=== PATIENT | male | born 1945 | race Caucasian/White ===

== ENCOUNTER → 2017-11-11 | Outpatient (CLI) | payer MEDICARE, BC ==
[2017-11-11 14:53] LABS: Blood Urea Nitrogen 20 mg/dL (9-20)
--- NOTE | 2017-11-11 15:32 | CT ---
EXAMINATION TYPE: CT chest w con DATE OF EXAM: 11/11/2017 COMPARISON: NONE HISTORY: Patient complains of episodes of difficulty breathing and asthma. CT DLP: 714 mGycm Automated exposure control for dose reduction was used. CONTRAST: CT scan of the chest is performed with IV Contrast, patient injected with 100 mL of Omnipaque 300. FINDINGS: LUNGS: There is a mild atelectasis right middle lobe medial segment. The remainder of the lungs are w ell aerated. Mild compressive atelectasis right lung base. No evidence for focal consolidation or mas s. No evidence for nodule. There is no pleural effusion or pneumothorax seen. The tracheobronchial t ree is patent. MEDIASTINUM: There are no greater than 1 cm hilar or mediastinal lymph nodes. No pericardial effusi on is seen. Thoracic aorta is of normal caliber. The heart is not enlarged. UPPER ABDOMEN: Noncalcified cholelithiasis. OTHER: No additional significant abnormality is seen. IMPRESSION: 1. Mild right middle lobe atelectasis and dependent atelectasis as discussed. No evidence for infiltr ate or mass at this time. 2. Cholelithiasis.
== END | disposition home or self-care (01) ==
LOC: RADCTMAIN 14:01
PROVIDERS: ATTEND Internal Medicine Critical Care Medicine
DX: J98.11 Atelectasis (principal)
CPT/HCPCS: 82565; 84520; 71260; 36415; Q9967

== ENCOUNTER 2019-10-22 10:31 | Day surgery (SDC) | payer MEDICARE, BC ==
[2019-10-21 11:28] VITALS: BMI 34.0
[~2019-10-22 10:31] MED LIST: ALBUTEROL NEB (CONC) 2.5 MG/0.5 ML INHALATION ONE; ATROPINE SULFATE 0.4 MG/ML 1 ML VIAL IM ONE; LACTATED RINGERS 1,000 ML IV SCH; LIDOCAINE 1% 20 ML VIAL (10MG/ML) FOR IV START INTRADERMA PRN; LIDOCAINE 2% (PF) 20 MG/ML 5 ML VIAL INHALATION ONE; LIDOCAINE VISCOUS 300 MG/15 ML CUP MUCOUS MEM ONE; SODIUM CHLORIDE 0.9% 1,000 ML IV SCH
[2019-10-22 11:33] VITALS: TEMP 97.8
[2019-10-22] MEDS ORDERED: PROPOFOL 10 MG/ML 20 ML VIAL IV ONE (11:36)
[2019-10-22] MEDS ORDERED: LIDOCAINE 1% INJ 10MG/ML (20 ML MDV) ONE (11:36)
[2019-10-22] MEDS ORDERED: LIDOCAINE 2% INJ 20 MG/ML INTRATRACH ONE (11:50)
[2019-10-22 11:58] VITALS: RESP 16
[2019-10-22 12:06] VITALS: BP 116/76; PULSE 98
--- NOTE | 2019-10-22 12:07 | PCN ---
PROCEDURE NOTE PROCEDURE: Bronchoscopy, airway examination, therapeutic lavage, BAL right middle lobe. PREOPERATIVE DIAGNOSIS: Severe asthma. POSTOPERATIVE DIAGNOSIS: Severe asthma. CALL CENTER AGENT: Dr. Palencia. There was informed consent and universal timeout. The patient's procedure took place in room 1, [facility], [employer]CH[employer]ICIAN provided the general anesthesia. After the patient was adequately sedated and being fully monitored, the bronchoscope was inserted through the right nostril. It passed through the right nasopharynx into the oropharynx. The hypopharynx was evaluated. The anterior commissure, true cords, false cords, arytenoids, piriform sinuses right and left, vallecula, and epiglottis, all appeared normal. The glottic opening was topicalized. The bronchoscope was pushed through the glottic opening into the trachea. The trachea appeared relatively normal, although there were thick purulent secretions noted throughout the trachea. They were suctioned. The tracheal mindy was sharp. The right and left mainstem were topicalized. The right upper lobe and its 3 segments, right middle lobe and its 2 segments, right lower lobe and its 5 segments, the left upper lobe proper and its 2 segments, the lingula and its 2 segments and the left lower lobe and its 4 segments, all had similar findings of diffuse airway erythema, hyperemia and mucosal friability. The blood vessels were engorged. There were thick secretions noted throughout. They were suctioned with some difficulty. Saline was used to aid in the cleansing of the airways. After the airways were cleansed, the bronchoscope was wedged into the right middle lobe. The BAL took place. Roughly 30 mL of fluid was removed. It will be sent to the laboratory for analysis. The patient tolerated the procedure well. There was no dominant mass or tumor. There was no bleeding. The bronchoscope was withdrawn. The patient will be recovered. The patient tolerated the procedure very well. MMODL / IJN: [id number] /
[2019-10-22 16:19] LABS: Appearance,BF Hazy; Nucleated Cells, Body Fluid 100 /uL; RBC, Body Fluid 3490 /uL
[2019-10-22 16:20] LABS: Mononuclear WBC,Body Fluid 29 %; Polynuclear WBC,Body Fluid 71 %; Total Cells Counted,Body Fluid 100
== END 2019-10-22 12:20 | disposition home or self-care (01) ==
LOC: ORWHC2ENDO 10:31
PROVIDERS: ATTEND Internal Medicine Critical Care Medicine
DX: J45.909 Unspecified asthma, uncomplicated (principal); I10 Essential (primary) hypertension; E78.00 Pure hypercholesterolemia, unspecified; E78.5 Hyperlipidemia, unspecified; E07.9 Disorder of thyroid, unspecified; Z90.89 Acquired absence of other organs; Z90.49 Acquired absence of other specified parts of digestive tract; Z79.890 Hormone replacement therapy; Z79.82 Long term (current) use of aspirin; Z79.51 Long term (current) use of inhaled steroids; Z79.899 Other long term (current) drug therapy; Z88.8 Allergy status to other drugs, medicaments and biological substances; Z91.09 Other allergy status, other than to drugs and biological substances; Z87.891 Personal history of nicotine dependence; Z80.7 Family history of other malignant neoplasms of lymphoid, hematopoietic and related tissues
CPT/HCPCS: 94640; 87798 ×3; 87496; 87498; 87529; 88108; 88305; 89050; 87252; 87502; 87634; 87070; 87205; 87116; 87102; 87206; 31624; J2001 ×3; J0461; J2704

== ENCOUNTER 2020-11-09 18:13 | Inpatient (IN) | payer MEDICARE, BC ==
[2020-11-09] MEDS ORDERED: SODIUM CHLORIDE 0.9% 1,000 ML IV STA (18:49)
[2020-11-09] MEDS ORDERED: methylPREDNISolone SOD SUCCI 125 MG/2 ML VIAL IV STA (18:51)
[2020-11-09] MEDS ORDERED: ALBUTEROL NEBULIZED 2.5 MG/3 ML INHALATION STA (18:52)
--- NOTE | 2020-11-09 18:59 | ED ---
SOB HPI - General Chief Complaint: Shortness of Breath Stated Complaint: Sent by [employer] - Pneumonia Time Seen by Provider: 11/09/20 18:20 Source: patient, RN notes reviewed Mode of arrival: ambulatory Limitations: no limitations - History of Present Illness Initial Comments: Is a 75-year-old male with a known history of also history of bronchoscopy who states she's had progressively worsening shortness of breath for the past 4-5 days she had a cough with yellow phlegm states she's had low-grade fever up until today he states his fevers of 100.5. No chest pain he has exertional dyspnea. He states that he is able coughing somewhat he feels better. He was seen at [facility] today and diagnosed with bilateral pneumonia. He did have a Covid 19 test that was negative. MD Complaint: shortness of breath, cough - Related Data Home Medications Medication Instructions Recorded Confirmed Atorvastatin [Lipitor] 20 mg PO HS 10/21/19 11/09/20 Levothyroxine Sodium [Synthroid] 50 mcg PO DAILY 10/21/19 11/09/20 Losartan Potassium 100 mg PO HS 10/21/19 11/09/20 Montelukast [Singulair] 10 mg PO HS 10/21/19 11/09/20 Fluticasone/Salmeterol [Advair Hfa 2 puff INHALATION RT-BID 11/09/20 11/09/20 230-21 Mcg Inhaler] Loratadine 10 mg PO DAILY 11/09/20 11/09/20 Allergies Allergy/AdvReac Type Severity Reaction Status Date / Time ipratropium Allergy Unknown Verified 11/09/20 21:09 Review of Systems ROS Statement: Those systems with pertinent positive or pertinent negative responses have been documented in the HPI. ROS Other: All systems not noted in ROS Statement are negative. Past Medical History Past Medical History: Asthma, Hyperlipidemia, Hypertension, Thyroid Disorder History of Any Multi-Drug Resistant Organisms: None Reported Past Surgical History: Appendectomy, Back Surgery Past Anesthesia/Blood Transfusion Reactions: No Reported Reaction Past Psychological History: No Psychological Hx Reported Smoking Status: Never smoker Past Alcohol Use History: Daily Past Drug Use History: None Reported General Exam - General Exam Comments Initial Comments: This is a well-developed well-nourished awake alert oriented 3 male Limitations: no limitations General appearance: alert, anxious Head exam: Present: atraumatic, normocephalic, normal inspection Eye exam: Present: normal appearance, PERRL, EOMI. Absent: scleral icterus, conjunctival injection, periorbital swelling ENT exam: Present: normal exam, mucous membranes moist Neck exam: Present: normal inspection. Absent: tenderness, meningismus, lymphadenopathy Respiratory exam: Present: wheezes, rhonchi (Bibasilar), decreased breath sounds. Absent: respiratory distress, rales, stridor Cardiovascular Exam: Present: regular rate, normal rhythm, normal heart sounds. Absent: systolic murmur, diastolic murmur, rubs, gallop, clicks GI/Abdominal exam: Present: soft, normal bowel sounds. Absent: distended, tenderness, guarding, rebound, rigid Extremities exam: Present: normal inspection, full ROM, normal capillary refill. Absent: tenderness, pedal edema, joint swelling, calf tenderness Back exam: Present: normal inspection Neurological exam: Present: alert, oriented X3, CN II-XII intact Psychiatric exam: Present: normal affect, normal mood Skin exam: Present: warm, dry, intact, normal color. Absent: rash Course Vital Signs 11/09/20 11/09/20 11/09/20 18:17 18:36 19:26 Temperature 98.8 F Pulse Rate 98 98 100 Respiratory 22 20 Rate Blood Pressure 145/82 O2 Sat by Pulse 92 L 91 L Oximetry 11/09/20 11/09/20 19:38 20:50 Temperature Pulse Rate 100 88 Respiratory 17 Rate Blood Pressure 146/89 O2 Sat by Pulse 93 L Oximetry - Reevaluation(s) Reevaluation #1: 11/09/20 19:00 Report faxed from [facility] shows evidence of bilateral pneumonia: Covid 19 est negative Medical Decision Making - Lab Data Result diagrams: 11/09/20 18:53 11/09/20 18:53 Lab Results 11/09/20 11/09/20 11/09/20 Range/Units 18:53 18:53 18:53 WBC 13.2 H (3.8-10.6) k/uL RBC 4.03 L (4.30-5.90) m/uL Hgb 12.5 L (13.0-17.5) gm/dL Hct 36.1 L (39.0-53.0) % MCV 89.6 (80.0-100.0) fL MCH 31.0 (25.0-35.0) pg MCHC 34.6 (31.0-37.0) g/dL RDW 14.1 (11.5-15.5) % Plt Count 278 (150-450) k/uL MPV 7.3 Neutrophils % 79 % Lymphocytes % 13 % Monocytes % 5 % Eosinophils % 1 % Basophils % 0 % Neutrophils # 10.4 H (1.3-7.7) k/uL Lymphocytes # 1.7 (1.0-4.8) k/uL Monocytes # 0.7 (0-1.0) k/uL Eosinophils # 0.2 (0-0.7) k/uL Basophils # 0.0 (0-0.2) k/uL PT 10.6 (9.0-12.0) sec INR 1.0 (<1.2) APTT 22.4 (22.0-30.0) sec Sodium 141 (137-145) mmol/L Potassium 4.2 (3.5-5.1) mmol/L Chloride 104 (98-107) mmol/L Carbon Dioxide 25 (22-30) mmol/L Anion Gap 12 mmol/L BUN 21 H (9-20) mg/dL Creatinine 0.92 (0.66-1.25) mg/dL Est GFR (CKD-EPI)AfAm >90 (>60 ml/min/1.73 sqM) Est GFR (CKD-EPI)NonAf 80 (>60 ml/min/1.73 sqM) Glucose 105 H (74-99) mg/dL Plasma Lactic Acid Nawaf (0.7-2.0) mmol/L Calcium 9.7 (8.4-10.2) mg/dL Magnesium 2.0 (1.6-2.3) mg/dL Total Bilirubin 0.7 (0.2-1.3) mg/dL AST 30 (17-59) U/L ALT 25 (4-49) U/L Alkaline Phosphatase 138 H (38-126) U/L Creatine Kinase 63 (55-170) U/L Troponin I (0.000-0.034) ng/mL NT-Pro-B Natriuret Pep pg/mL Total Protein 7.3 (6.3-8.2) g/dL Albumin 4.0 (3.5-5.0) g/dL 11/09/20 11/09/20 11/09/20 Range/Units 18:53 18:53 18:53 WBC (3.8-10.6) k/uL RBC (4.30-5.90) m/uL Hgb (13.0-17.5) gm/dL Hct (39.0-53.0) % MCV (80.0-100.0) fL MCH (25.0-35.0) pg MCHC (31.0-37.0) g/dL RDW (11.5-15.5) % Plt Count (150-450) k/uL MPV Neutrophils % % Lymphocytes % % Monocytes % % Eosinophils % % Basophils % % Neutrophils # (1.3-7.7) k/uL Lymphocytes # (1.0-4.8) k/uL Monocytes # (0-1.0) k/uL Eosinophils # (0-0.7) k/uL Basophils # (0-0.2) k/uL PT (9.0-12.0) sec INR (<1.2) APTT (22.0-30.0) sec Sodium (137-145) mmol/L Potassium (3.5-5.1) mmol/L Chloride (98-107) mmol/L Carbon Dioxide (22-30) mmol/L Anion Gap mmol/L BUN (9-20) mg/dL Creatinine (0.66-1.25) mg/dL Est GFR (CKD-EPI)AfAm (>60 ml/min/1.73 sqM) Est GFR (CKD-EPI)NonAf (>60 ml/min/1.73 sqM) Glucose (74-99) mg/dL Plasma Lactic Acid Nawaf 1.0 (0.7-2.0) mmol/L Calcium (8.4-10.2) mg/dL Magnesium (1.6-2.3) mg/dL Total Bilirubin (0.2-1.3) mg/dL AST (17-59) U/L ALT (4-49) U/L Alkaline Phosphatase (38-126) U/L Creatine Kinase (55-170) U/L Troponin I <0.012 (0.000-0.034) ng/mL NT-Pro-B Natriuret Pep 170 pg/mL Total Protein (6.3-8.2) g/dL Albumin (3.5-5.0) g/dL - EKG Data -: EKG Interpreted by Me EKG shows normal: sinus rhythm EKG Comments: Sinus rhythm with PACs rate 92 LA interval 156 QRS 80 QT since QTC 3:30/[address]-T wave changes - Radiology Data Radiology results: report reviewed (Imaging a report reviewed. He does demonstrate evidence of bilateral infiltrates.), image reviewed Disposition Clinical Impression: Bilateral pneumonia, Asthma exacerbation Disposition: ADMITTED IP TO THIS HOSP Condition: Fair Referrals: Nelson Willingham MD [Primary Care Provider] - 1-2 days
[2020-11-09 19:07] LABS: Basophils % (A) 0 %; Eosinophils # (A) 0.2 k/uL (0-0.7); Eosinophils % (A) 1 %; HCT 36.1 % (39.0-53.0); HGB 12.5 gm/dL (13.0-17.5); Lymphocytes # (A) 1.7 k/uL (1.0-4.8); Lymphocytes % (A) 13 %; MCHC 34.6 g/dL (31.0-37.0); MCV 89.6 fL (80.0-100.0); Mean Platelet Volume 7.3; Monocytes # (A) 0.7 k/uL (0-1.0); Monocytes % (A) 5 %; Neutrophils # (A) 10.4 k/uL (1.3-7.7); Neutrophils % (A) 79 %; Platelet Count 278 k/uL (150-450); RBC 4.03 m/uL (4.30-5.90); RDW 14.1 % (11.5-15.5); WBC 13.2 k/uL (3.8-10.6)
[2020-11-09 19:15] LABS: ALT 25 U/L (4-49); AST 30 U/L (17-59); African American GFR (CKD) >90 (>60 ml/min/1.73 sqM); Alkaline Phosphatase 138 U/L (38-126); Anion Gap 12 mmol/L; Blood Urea Nitrogen 21 mg/dL (9-20); Calcium 9.7 mg/dL (8.4-10.2); Carbon Dioxide 25 mmol/L (22-30); Chloride 104 mmol/L (98-107); Creatine Kinase 63 U/L (55-170); Glucose 105 mg/dL (74-99); Non-African American GFR(CKD) 80 (>60 ml/min/1.73 sqM); Partial Thromboplastin Time 22.4 sec (22.0-30.0); Potassium 4.2 mmol/L (3.5-5.1); Prothrombin Time 10.6 sec (9.0-12.0); Sodium 141 mmol/L (137-145); Total Bilirubin 0.7 mg/dL (0.2-1.3); Total Protein 7.3 g/dL (6.3-8.2)
--- NOTE | 2020-11-09 19:26 | XR ---
EXAMINATION TYPE: XR chest 2V DATE OF EXAM: 11/09/2020 COMPARISON: CT chest November 11, 2017. Chest x-ray November 04, 2017 HISTORY: Chronic cough with worsening shortness of breath over last 4-5 days TECHNIQUE: Frontal and lateral views of the chest are obtained. FINDINGS: There aren't increasing bibasilar opacities on background chronic changes. The cardiac angel houette size is upper limits of normal with slightly ectatic thoracic aorta redemonstrated. Multileve l spurring in the spine. IMPRESSION: Developing bibasilar atelectasis and/or infiltrates on background chronic parenchymal ch anges.
[2020-11-09] MEDS ORDERED: cefTRIAXone IN SWFI 1,000 MG/10 ML SYRINGE IVP STA (20:50)
[2020-11-09] MEDS ORDERED: PNEUMONIA PROTOCOL UTILIZED 1 EACH MISC PO PRN (22:22)
[2020-11-09] MEDS ORDERED: AZITHROMYCIN 500 MG in SODIUM CHLORIDE 0.9% 250 ML IVPB STA (22:22)
[2020-11-09] MEDS: SODIUM CHLORIDE 0.9% 1,000 ML IV SCH (22:56)
[2020-11-09] MEDS ORDERED: ALBUTEROL NEBULIZED 2.5 MG/3 ML INHALATION PRN (23:00)
[2020-11-10] MEDS ORDERED: ALBUTEROL NEBULIZED 2.5 MG/3 ML INHALATION SCH
[2020-11-10] MEDS: methylPREDNISolone SOD SUCCI 125 MG/2 ML VIAL IV SCH ×4 (01:34→17:00)
[2020-11-10] MEDS: ALBUTEROL NEBULIZED 2.5 MG/3 ML INHALATION SCH ×4 (07:39→20:54)
--- NOTE | 2020-11-10 07:58 | XR ---
EXAMINATION TYPE: XR chest 2V DATE OF EXAM: 11/10/2020 COMPARISON: 11/09/2020 HISTORY: 75-year-old male with pneumonia TECHNIQUE: Frontal and lateral views FINDINGS: Heart normal size. Anesthetic arch calcifications. Hyperinflation with some flattening of the hemidia phragms. Patchy opacities right mid and lower lung and also in the retrocardiac region persist. Sligh t increase at the right mid lung. No pleural effusion. IMPRESSION: COPD and continued patchy infiltrates, right greater than left. Slight worsening at the right midlung level.
[2020-11-10] MEDS: SODIUM CHLORIDE 0.9% 1,000 ML IV SCH ×2 (08:07→17:00)
[2020-11-10] MEDS ORDERED: LORazepam 2 MG/ML INJ IV PRN ×3 (09:14)
[2020-11-10 11:23] LABS: Glucose,Whole Blood 197 mg/dL (75-99)
--- NOTE | 2020-11-10 12:05 | P.HPIM ---
History of Present Illness H&P Date: 11/10/20 HISTORY OF PRESENT ILLNESS This is a 75-year-old male patient of Dr. Patricia and Dr. Palencia with past medical history of asthma, hypertension, hyperlipidemia, hypothyroidism, remote history of tobacco use and dependence, daily alcohol use. Patient states that he has had problems with asthma since he was 5 years of age with significant sputum production and sinus plugging. He had a bronchoscopy in October [address] Palencia and states that after this he was feeling like $1 million. She gives history that he went for a bike ride on Friday and he did have some shortness of breath. On Friday he had increasing shortness of breath that continued through the week. Patient is complaining of chronic phlegm production and increasing difficulty with breathing as well as a low-grade fever that developed this week. He went to [facility] and had occult blood test that was negative. He was diagnosed with bilateral pneumonia instructed come into the hospital for further evaluation and treatment. At the time of evaluation, patient states that his breathing is much improved. Patient presented to [facility] emergency center. Chest x-ray revealed developing bilateral atelectasis and/or infiltrate on background of chronic parenchymal changes. Repeat chest x-ray this morning reveals COPD with continued patchy infiltrate right greater than left with slight worsening at the right midlung level. Patient was afebrile, heart rate 98, blood pressure 145/82, pulse ox 92% on room air. WBC 13.2, hemoglobin 12.5, platelet count 278. Electrolytes normal. BUN 21 creatinine 0.92, blood sugar 105. Troponin negative. ProBNP 170. CK 63. Patient admitted to the [facility] floor and consult requested with pulmonary medicine. REVIEW OF SYSTEMS Constitutional: Reports fever, no chills, no night sweats. No weight change. No weakness, fatigue or lethargy. No daytime sleepiness. EENT: No headache. No blurred vision or double vision, no loss of vision. No loss of Hearing, no ringing in the ears, no dizziness. No nasal drainage or congestion. No epistaxis. No sore throat. Lungs: Reports shortness of breath, reports cough, reports acute on chronic sputum production. Reports wheezing. Cardiovascular: No chest pain, no lower extremity edema. No palpitations. No paroxysmal nocturnal dyspnea. No orthopnea. No lightheadedness or dizziness. No syncopal episodes. Abdominal: No abdominal pain. No nausea, vomiting. No diarrhea. No constipation. No bloody or tarry stools.. No loss of appetite. Genitourinary: No dysuria, increased frequency, urgency. No urinary retention. Musculoskeletal: No myalgias. No muscle weakness, no gait dysfunction, no frequent falls. No back pain. No neck pain. Integumentary: No wounds, no lesions. No rash or pruritus. No unusual bruising. No change in hair or nails. Neurologic: No aphasia. No facial droop. No change in mentation. No head injury. No headache. No paralysis. No paresthesia. Psychiatric: No depression. No anxiety. Endocrine: No abnormal blood sugars. No weight change. SOCIAL HISTORY Patient states he smoked only for 3 years in the 1960s. He drinks beer 5-6 every day and has been doing this for many years. He is retired from [employer] 18 years ago and states he had minimal exposure to toxins there. FAMILY HISTORY Mother at age 88 from a stroke. Father at age 87 from a stroke which occurred after AAA surgery. Patient one sister that from lymphoma at age 50. He does not have any brothers. PHYSICAL EXAMINATION Gen: This is a 75-year-old male. He is resting better. To be comfortable and in no acute distress. HEENT: Head is atraumatic, normocephalic. Pupils equal, round. Sclerae is anicteric. NECK: Supple. No JVD. No lymphadenopathy. No thyromegaly. LUNGS: Rhonchi more so on the right. No intercostal retractions. Accessory muscle usage. HEART: Regular rate and rhythm. No murmur. ABDOMEN: Soft. Bowel sounds are present. No masses. No tenderness. EXTREMITIES: No pedal edema. No calf tenderness. Dorsalis pedis palpable bilaterally. NEUROLOGICAL: Patient is awake, alert and oriented x3. Cranial nerves 2 through 12 are grossly intact. ASSESSMENT AND PLAN 1. Acute exacerbation of moderate intermittent asthma and COPD exacerbation. [facility] Consult with pulmonary medicine. Continue albuterol 4 times daily and as needed, Symbicort 2 puffs twice daily, Rocephin and a azithromycin daily, Solu-Medrol 60 mg IV every 6 hours, Singulair 10 mg at bedtime. 2. Hypertension. Blood pressures currently on the low side. Losartan resumed tonight with parameters to hold if systolic blood pressure less than 110. 3. Hyperlipidemia. Continue atorvastatin 20 mg at bedtime. 4. Hypothyroidism. Continue levothyroxine 50 g daily. 5. Remote history of tobacco use and dependence. 6. Daily alcohol abuse. Patient started on CIWA oh to call. 7. GI prophylaxis. Protonix daily. 8. DVT prophylaxis. Heparin subcu. Patient will be admitted to the hospital for a minimum of 2 night stay. DISCHARGE PLAN home. Impression and plan of care have been directed as dictated by the signing physician. Bethany Bradshaw nurse practitioner acting as scribe for signing physician. Past Medical History Past Medical History: Asthma, Hyperlipidemia, Hypertension, Thyroid Disorder History of Any Multi-Drug Resistant Organisms: None Reported Past Surgical History: Appendectomy, Back Surgery Past Anesthesia/Blood Transfusion Reactions: No Reported Reaction Past Psychological History: No Psychological Hx Reported Smoking Status: Former smoker Past Alcohol Use History: Daily Additional Past Alcohol Use History / Comment(s): smoked less than 1ppd from [id number] Past Drug Use History: None Reported Additional Drug Use History / Comment(s): topical CBD occasional Medications and Allergies Home Medications Medication Instructions Recorded Confirmed Type Atorvastatin [Lipitor] 20 mg PO HS 10/21/19 11/09/20 History Levothyroxine Sodium [Synthroid] 50 mcg PO DAILY 10/21/19 11/09/20 History Losartan Potassium 100 mg PO HS 10/21/19 11/09/20 History Montelukast [Singulair] 10 mg PO HS 10/21/19 11/09/20 History Fluticasone/Salmeterol [Advair Hfa 2 puff INHALATION RT-BID 11/09/20 11/09/20 History 230-21 Mcg Inhaler] Loratadine 10 mg PO DAILY 11/09/20 11/09/20 History Allergies Allergy/AdvReac Type Severity Reaction Status Date / Time ipratropium Allergy Unknown Verified 11/09/20 21:09 Physical Exam Vitals: Vital Signs Temp Pulse Pulse Resp BP BP Pulse Ox 11/10/20 07:39 94 18 94 L 11/10/20 06:59 98.2 F 95 20 98/84 93 L 11/10/20 01:31 98.5 F 96 18 155/77 91 L 11/09/20 22:59 80 18 145/90 98 11/09/20 20:50 88 17 146/89 93 L 11/09/20 19:38 100 11/09/20 19:26 100 11/09/20 18:36 98 20 91 L 11/09/20 18:17 98.8 F 98 22 145/82 92 L Intake and Output 11/09/20 11/10/20 11/10/20 22:59 06:59 14:59 Intake Total 100 Balance 100 Intake: IV 100 Invasive Line 1 100 Other: Weight 90.718 kg 90.718 kg Results CBC & Chem 7: 11/09/20 18:53 11/09/20 18:53 Labs: Abnormal Lab Results - Last 24 Hours (Table) 11/09/20 11/09/20 Range/Units 18:53 18:53 WBC 13.2 H (3.8-10.6) k/uL RBC 4.03 L (4.30-5.90) m/uL Hgb 12.5 L (13.0-17.5) gm/dL Hct 36.1 L (39.0-53.0) % Neutrophils # 10.4 H (1.3-7.7) k/uL BUN 21 H (9-20) mg/dL Glucose 105 H (74-99) mg/dL Alkaline Phosphatase 138 H (38-126) U/L Thrombosis Risk Factor Assmnt - Choose All That Apply Each Factor Represents 1 point: Obesity (BMI >25) Each Risk Factor Represents 3 Points: Age 75 years or older Other congenital or acquired thrombophilia - If yes, enter type in comment: No Thrombosis Risk Factor Assessment Total Risk Factor Score: 4 Thrombosis Risk Factor Assessment Level: Moderate Risk
[2020-11-10] MEDS: INSULIN ASPART (NovoLOG) 100 UNIT/ML VIAL SQ SCH ×3 (12:07→21:13)
--- NOTE | 2020-11-10 12:09 | CT ---
EXAMINATION TYPE: CT angio chest DATE OF EXAM: 11/10/2020 11:50 AM COMPARISON: CT chest November 11, 2017 HISTORY: Shortness of breath. CT DLP: 506.2 mGycm Automated exposure control for dose reduction was used. CONTRAST: CTA scan of the thorax is performed with IV Contrast, patient injected with 100 mL of Isovue 370, pul monary embolism protocol. MIP images are created and reviewed. FINDINGS: LUNGS: Exam is suboptimal as patient unable to hold breath. [id number] underlying emphysematous changes present. Mild to moderate central peribronchial wall thickening is redemonstrated. There is [id number] bibasilar linear scarring and/or atelectasis with multifocal areas of groundglass op acity also present. No pleural effusion or pneumothorax is seen. Areas of endobronchial occlusion and /or mucous plugging in the lower lungs is redemonstrated. MEDIASTINUM: There is suboptimal study with near equal contrast in the right and left heart systems b ut no CT evidence for acute pulmonary embolism. Main pulmonary artery dilated between 3.4-3.5 cm, CT findings suggesting underlying pulmonary artery hypertension. There are no greater than 1 cm hilar o r mediastinal lymph nodes. Trace pericardial effusion is seen. No cardiomegaly. OTHER: Small degree of subareolar gynecomastia bilaterally is redemonstrated. Two stones in contracte d gallbladder. A scoliotic curvature. Multilevel spurring in the spine. IMPRESSION: 1. Suboptimal study without acute pulmonary embolism. 2. Hdbd-ja-nihseguy emphysematous change with central bronchiolitis redemonstrated. Worsening bibasil ar atelectasis and/or scarring. Additional multifocal bibasilar edema and/or infiltrates are present. Correlate clinically.
--- NOTE | 2020-11-10 14:09 | P.CNPUL ---
History of Present Illness Consult date: 11/10/20 Requesting physician: Amarjit Schaefer Reason for consult: dyspnea, abnormal CXR/CT Chief complaint: Shortness of breath, cough, congestion History of present illness: This is a very pleasant 75-year-old gentleman who follows with Dr. Willingham as his primary care provider. He has a history of hypothyroidism, hyperlipidemia, daily alcohol use, hypertension, moderate intermittent chronic bronchial asthma/COPD from previous smoking history and follows with Dr. Palencia in our office for the same. He remains on Advair, Singulair and albuterol in the outpatient setting. He presented to the emergency room yesterday after developing increasing shortness of breath cough congestion and fever. He ini tially had gone to [facility] to be tested for CoVID which was reported as negative. He was found to have bilateral pneumonia and admitted for the same. His x-ray reveals evidence of COPD with continued patchy infiltrates right greater than left slight worsening at the right midlung level. White count 13.2. Hemoglobin 12.5. Sodium 141. Potassium 4.2. Creatinine 0.92. Herman virus again not detected. He's been initiated on ceftriaxone and azithromycin along with IV Solu-Medrol and bronchodilators. Appendectomy is seen today in consultation on the regular medical floor. He is currently sitting up at the bedside. Awake and alert in no acute distress. He does have a productive cough of pale yellow sputum, occasional chills. Currently afebrile. Maintaining O2 saturation in the 90s on room air. Review of Systems REVIEW OF SYSTEMS: CONSTITUTIONAL: Denies any recent significant weight loss or weight gain. EYES: Denies change in vision. EARS, NOSE, MOUTH, THROAT: Denies headaches, denies sore throat. CARDIOVASCULAR: Denies chest pain, palpitations or syncopal episodes. RESPIRATORY: Positive for shortness of breath, cough, congestion no hemoptysis. GASTROINTESTINAL: Denies change in appetite, denies abdominal pain GENITOURINARY: Denies hematuria, denies infections. MUSKULOSKELETAL: Denies pain, denies swelling. INTEGUMENTARY: Denies rash, denies eczema. NEUROLOGICAL: Denies recent memory loss, no recent seizure activity. PSYCHIATRIC: Denies anxiety, denies depression. HEMATOLOGIC/LYMPHATIC: Denies anemia, denies enlarged lymph nodes. Past Medical History Past Medical History: Asthma, Hyperlipidemia, Hypertension, Thyroid Disorder History of Any Multi-Drug Resistant Organisms: None Reported Past Surgical History: Appendectomy, Back Surgery Past Anesthesia/Blood Transfusion Reactions: No Reported Reaction Past Psychological History: No Psychological Hx Reported Smoking Status: Former smoker Past Alcohol Use History: Daily Additional Past Alcohol Use History / Comment(s): smoked less than 1ppd from [id number] Past Drug Use History: None Reported Additional Drug Use History / Comment(s): topical CBD occasional Medications and Allergies Home Medications Medication Instructions Recorded Confirmed Type Atorvastatin [Lipitor] 20 mg PO HS 10/21/19 11/09/20 History Levothyroxine Sodium [Synthroid] 50 mcg PO DAILY 10/21/19 11/09/20 History Losartan Potassium 100 mg PO HS 10/21/19 11/09/20 History Montelukast [Singulair] 10 mg PO HS 10/21/19 11/09/20 History Fluticasone/Salmeterol [Advair Hfa 2 puff INHALATION RT-BID 11/09/20 11/09/20 History 230-21 Mcg Inhaler] Loratadine 10 mg PO DAILY 11/09/20 11/09/20 History Allergies Allergy/AdvReac Type Severity Reaction Status Date / Time ipratropium Allergy Unknown Verified 11/09/20 21:09 Physical Exam Vitals: Vital Signs Temp Pulse Pulse Resp BP BP Pulse Ox 11/10/20 13:43 98.1 F 98 18 153/81 93 L 11/10/20 12:35 88 11/10/20 12:25 88 11/10/20 08:00 95 11/10/20 07:39 94 18 94 L 11/10/20 06:59 98.2 F 95 20 98/84 93 L 11/10/20 01:31 98.5 F 96 18 155/77 91 L 11/09/20 22:59 80 18 145/90 98 11/09/20 20:50 88 17 146/89 93 L 11/09/20 19:38 100 11/09/20 19:26 100 11/09/20 18:36 98 20 91 L 11/09/20 18:17 98.8 F 98 22 145/82 92 L Intake and Output 11/09/20 11/10/20 11/10/20 22:59 06:59 14:59 Intake Total 100 Balance 100 Intake: IV 100 Invasive Line 1 100 Other: Weight 90.718 kg 90.718 kg GENERAL EXAM: Alert, pleasant 75-year-old gentleman, on room air comfortable in no apparent distress. HEAD: Normocephalic. EYES: Normal reaction of pupils, equal size. NOSE: Clear with pink turbinates. THROAT: No erythema or exudates. NECK: No masses, no JVD. CHEST: No chest wall deformity. LUNGS: Equal air entry with bilateral scattered rhonchi. CVS: S1 and S2 normal with no audible murmur, regular rhythm. ABDOMEN: No hepatosplenomegaly, normal bowel sounds, no guarding or rigidity. SPINE: No scoliosis or deformity SKIN: No rashes CENTRAL NERVOUS SYSTEM: No focal deficits, tone is normal in all 4 extremities. EXTREMITIES: There is no peripheral edema. No clubbing, no cyanosis. Peripheral pulses are intact. Results - Laboratory Findings CBC and BMP: 11/09/20 18:53 11/09/20 18:53 PT/INR, D-dimer PT 10.6 sec (9.0-12.0) 11/09/20 18:53 INR 1.0 (<1.2) 11/09/20 18:53 Abnormal lab findings: Abnormal Labs 11/09/20 11/09/20 03 18:53 18:53 11:21 WBC 13.2 H RBC 4.03 L Hgb 12.5 L Hct 36.1 L Neutrophils # 10.4 H BUN 21 H Glucose 105 H POC Glucose (mg/dL) 197 H Alkaline Phosphatase 138 H - Diagnostic Findings Chest x-ray: image reviewed Assessment and Plan Assessment: 1 Acute exacerbation of mild intermittent chronic bronchial asthma, complicated by purulent tracheobronchitis 2 Acute community-acquired pneumonia 3 Remote history of chronic tobacco dependence 4 Hypothyroidism 5 Hyperlipidemia 6 Hypertension 7 Daily alcohol use 8 History of Haemophilus influenza on previous bronchoscopy 2019 Plan: The patient was seen and evaluated by Dr. Roche Chest x-ray, CAT scans and labs reviewed Continue with bronchodilators, IV Solu-Medrol, antibiotics Obtain a pro-calcitonin, proBNP, sputum sample Continue [facility] protocol Follow-up chest x-ray in a.m. We will continue to follow and make further recommendations based on his clinical status I, the cosigning physician, performed a history & physical examination of the patient. Lungs sounds bilateral scattered rhonchi. Maintaining good O2 saturations in the 90s on room air. I discussed the assessment and plan of care with my nurse practitioner, Ellie Ball. I attest to the above consultation as dictated by her. Time with Patient: Greater than 30
[2020-11-10 16:45] LABS: Glucose,Whole Blood 168 mg/dL (75-99)
[2020-11-10] MEDS: THIAMINE 100 MG TAB PO SCH (16:59)
[2020-11-10] MEDS ORDERED: SYMBICORT 160-4.5 MCG INHALER INHALATION SCH (20:00)
[2020-11-10] MEDS ORDERED: FLUTICASONE SALMETEROL INHALATION SCH (20:00)
[2020-11-10] MEDS: FLUTICASONE SALMETEROL INHALATION SCH (20:55)
[2020-11-10] MEDS: MONTELUKAST 10 MG TAB PO SCH (21:05)
[2020-11-10] MEDS: AZITHROMYCIN 500 MG TAB PO SCH (21:05)
[2020-11-10] MEDS: ATORVASTATIN 20 MG TAB PO SCH (21:05)
[2020-11-10] MEDS: LOSARTAN 50 MG TAB PO SCH (21:05)
[2020-11-10] MEDS: HEPARIN SODIUM,PORCINE 5,000 UNIT/ML 1 ML VIAL SQ SCH (21:05)
[2020-11-10 21:10] LABS: Glucose,Whole Blood 160 mg/dL (75-99)
[2020-11-11] MEDS: methylPREDNISolone SOD SUCCI 125 MG/2 ML VIAL IV SCH ×5 (00:32→23:30)
[2020-11-11] MEDS: SODIUM CHLORIDE 0.9% 1,000 ML IV SCH ×2 (04:54→17:18)
[2020-11-11] MEDS: LEVOTHYROXINE 50 MCG TAB PO SCH (05:34)
[2020-11-11 07:12] LABS: Glucose,Whole Blood 159 mg/dL (75-99)
--- NOTE | 2020-11-11 07:38 | XR ---
EXAMINATION TYPE: XR chest 2V DATE OF EXAM: 11/11/2020 COMPARISON: 11/10/2020 HISTORY: Pneumonia TECHNIQUE: Frontal and lateral views of the chest are obtained. FINDINGS: There are persistent small partially consolidative bibasilar opacities. The upper lungs are clear. There is no pleural plaques. The heart size is normal and the pulmonary vasculature does not appear congested. The osseous structures are intact. IMPRESSION: No change in the small partially consolidative opacities in the lung bases.
[2020-11-11] MEDS: HEPARIN SODIUM,PORCINE 5,000 UNIT/ML 1 ML VIAL SQ SCH ×2 (07:39→21:26)
[2020-11-11] MEDS: THIAMINE 100 MG TAB PO SCH ×2 (07:40→17:17)
[2020-11-11] MEDS: LORATADINE 10 MG TAB PO SCH (07:40)
[2020-11-11] MEDS: INSULIN ASPART (NovoLOG) 100 UNIT/ML VIAL SQ SCH ×4 (07:40→21:28)
[2020-11-11] MEDS: PANTOPRAZOLE 40 MG TABLET PO SCH (07:40)
[2020-11-11] MEDS: FLUTICASONE SALMETEROL INHALATION SCH ×2 (08:05→21:57)
[2020-11-11] MEDS: ALBUTEROL NEBULIZED 2.5 MG/3 ML INHALATION SCH ×4 (08:05→21:53)
[2020-11-11 11:52] LABS: Glucose,Whole Blood 237 mg/dL (75-99)
--- NOTE | 2020-11-11 12:32 | P.PN ---
Subjective Progress Note Date: 11/11/20 Principal diagnosis: Acute bilateral community-acquired pneumonia This is a very pleasant 75-year-old gentleman who follows with Dr. Willingham as his primary care provider. He has a history of hypothyroidism, hyperlipidemia, daily alcohol use, hypertension, moderate intermittent chronic bronchial asthma/COPD from previous smoking history and follows with Dr. Palencia in our office for the same. He remains on Advair, Singulair and albuterol in the outpatient setting. He presented to the emergency room yesterday after developing increasing shortness of breath cough congestion and fever. He initially had gone to [facility] to be tested for CoVID which was reported as negative. He was found to have bilateral pneumonia and admitted for the same. His x-ray reveals evidence of COPD with continued patchy infiltrates right greater than left slight worsening at the right midlung level. White count 13.2. Hemoglobin 12.5. Sodium 141. Potassium 4.2. Creatinine 0.92. Herman virus again not detected. He's been initiated on ceftriaxone and azithromycin along with IV Solu-Medrol and bronchodilators. Appendectomy is seen today in consultation on the regular medical floor. He is currently sitting up at the bedside. Awake and alert in no acute distress. He does have a productive cough of pale yellow sputum, occasional chills. Currently afebrile. Maintaining O2 saturation in the 90s on room air. The patient is seen today 11/11/2020 and a follow-up on the regular medical floor. He is currently resting comfortably in bed. Awake and alert in no acute distress. Breathing easier today compared to yesterday. Maintaining O2 saturations in the mid 90s on room air. Chest x-ray showed bilateral infiltrates right greater than left. Sputum cultures positive for Streptococcus pneumoniae. Remains on ceftriaxone and azithromycin along with bronchodilators and steroids. Objective - Vital Signs Vital signs: Vital Signs Temp 97.8 F 11/11/20 06:50 Pulse 76 11/11/20 11:35 Resp 18 11/11/20 10:16 BP 141/73 11/11/20 06:50 Pulse Ox 96 11/11/20 08:05 Intake & Output 11/10/20 11/11/20 11/11/20 18:59 06:59 18:59 Intake Total 1400 Balance 1400 Intake: IV 100 Invasive Line 1 100 Intake, IV Titration 1300 Amount Sodium Chloride 0.9% 1, 1200 000 ml @ 100 mls/hr IV . Q10H [facility] Rx#:[id number] cefTRIAXone 2 gm In 100 Sodium Chloride 0.9% 50 ml @ 100 mls/hr IVPB Q24H [facility] Rx#:[id number] Other: Voiding Method Toilet Toilet # Voids 3 - Exam GENERAL EXAM: Alert, pleasant 75-year-old gentleman, on room air, comfortable in no apparent distress. HEAD: Normocephalic. EYES: Normal reaction of pupils, equal size. NOSE: Clear with pink turbinates. THROAT: No erythema or exudates. NECK: No masses, no JVD. CHEST: No chest wall deformity. LUNGS: Equal air entry with bilateral scattered rhonchi. CVS: S1 and S2 normal with no audible murmur, regular rhythm. ABDOMEN: No hepatosplenomegaly, normal bowel sounds, no guarding or rigidity. SPINE: No scoliosis or deformity SKIN: No rashes CENTRAL NERVOUS SYSTEM: No focal deficits, tone is normal in all 4 extremities. EXTREMITIES: There is no peripheral edema. No clubbing, no cyanosis. Peripheral pulses are intact. - Labs CBC & Chem 7: 11/09/20 18:53 11/09/20 18:53 Labs: Abnormal Lab Results - Last 24 Hours (Table) 11/10/20 11/10/20 11/11/20 Range/Units 16:41 21:09 06:55 POC Glucose (mg/dL) 168 H 160 H 159 H (75-99) mg/dL 11/11/20 Range/Units 11:50 POC Glucose (mg/dL) 237 H (75-99) mg/dL Microbiology - Last 24 Hours (Table) 11/10/20 08:15 Gram Stain - Preliminary Sputum Sputum Culture - Preliminary Streptococcus pneumoniae 11/09/20 18:53 Blood Culture - Preliminary Blood No Growth after 24 hours Assessment and Plan Assessment: 1 Acute exacerbation of mild intermittent chronic bronchial asthma, complicated by purulent tracheobronchitis 2 Acute community-acquired pneumonia secondary to Streptococcus pneumoniae 3 Remote history of chronic tobacco dependence 4 Hypothyroidism 5 Hyperlipidemia 6 Hypertension 7 Daily alcohol use 8 History of Haemophilus influenza on previous bronchoscopy 2019 Plan: The patient was seen and evaluated by Dr. Roche Sputum culture and labs reviewed Continue with bronchodilators, IV Solu-Medrol, antibiotics Continue CIWA protocol We will continue to follow I, the cosigning physician, performed a history & physical examination of the patient. Lungs sounds bilateral scattered rhonchi. Maintaining good O2 saturations in the 90s on room air. I discussed the assessment and plan of care with my nurse practitioner, Ellie Ball. I attest to the above note as dictated by her.
--- NOTE | 2020-11-11 14:41 | P.PN ---
Subjective Progress Note Date: 11/11/20 HISTORY OF PRESENT ILLNESS This is a 75-year-old male patient of Dr. Patricia and Dr. Palencia with past medical history of asthma, hypertension, hyperlipidemia, hypothyroidism, remote history of tobacco use and dependence, daily alcohol use. Patient states that he has had problems with asthma since he was 5 years of age with significant sputum production and sinus plugging. He had a bronchoscopy in October [address] Palencia and states that after this he was feeling like $1 million. She gives history that he went for a bike ride on Friday and he did have some shortness of breath. On Friday he had increasing shortness of breath that continued through the week. Patient is complaining of chronic phlegm production and increasing difficulty with breathing as well as a low-grade fever that developed this week. He went to [facility] and had occult blood test that was negative. He was diagnosed with bilateral pneumonia instructed come into the hospital for further evaluation and treatment. At the time of evaluation, patient states that his breathing is much improved. Patient presented to [facility] emergency center. Chest x-ray revealed developing bilateral atelectasis and/or infiltrate on background of chronic parenchymal changes. Repeat chest x-ray this morning reveals COPD with continued patchy infiltrate right greater than left with slight worsening at the right midlung level. Patient was afebrile, heart rate 98, blood pressure 145/8 2, pulse ox 92% on room air. WBC 13.2, hemoglobin 12.5, platelet count 278. Electrolytes normal. BUN 21 creatinine 0.92, blood sugar 105. Troponin negative. ProBNP 170. CK 63. Patient admitted to the [facility] floor and consult requested with pulmonary medicine. 11/11 patient examined bedside. His resting comfortably in bed denies any cough or shortness of breath. Mentating oxygen saturation vitals are stable. Chest x-ray does show bilateral infiltrates right greater than the left. Sputum cultures positive for strep . a 2-D negatives BNP negative. Troponin negative. Gen. patient on current antibiotics and IV steroids. REVIEW OF SYSTEMS Constitutional: Reports fever, no chills, no night sweats. No weight change. No weakness, fatigue or lethargy. No daytime sleepiness. EENT: No headache. No blurred vision or double vision, no loss of vision. No l oss of Hearing, no ringing in the ears, no dizziness. No nasal drainage or congestion. No epistaxis. No sore throat. Lungs: Reports shortness of breath, reports cough, reports acute on chronic sput um production. Reports wheezing. Cardiovascular: No chest pain, no lower extremity edema. No palpitations. No paroxysmal nocturnal dyspnea. No orthopnea. No lightheadedness or dizziness. No syncopal episodes. Abdominal: No abdominal pain. No nausea, vomiting. No diarrhea. No constipation. No bloody or tarry stools.. No loss of appetite. Genitourinary: No dysuria, increased frequency, urgency. No urinary retention. Musculoskeletal: No myalgias. No muscle weakness, no gait dysfunction, no frequent falls. No back pain. No neck pain. Integumentary: No wounds, no lesions. No rash or pruritus. No unusual bruising. No change in hair or nails. Neurologic: No aphasia. No facial droop. No change in mentation. No head injury. No headache. No paralysis. No paresthesia. Psychiatric: No depression. No anxiety. Endocrine: No abnormal blood sugars. No weight change. Objective - Vital Signs Vital signs: Vital Signs Temp 97.8 F 11/11/20 06:50 Pulse 76 11/11/20 11:35 Resp 18 11/11/20 10:16 BP 141/73 11/11/20 06:50 Pulse Ox 96 11/11/20 08:05 Intake & Output 11/10/20 11/11/20 11/11/20 18:59 06:59 18:59 Intake Total 1400 Balance 1400 Intake: IV 100 Invasive Line 1 100 Intake, IV Titration 1300 Amount Sodium Chloride 0.9% 1, 1200 000 ml @ 100 mls/hr IV . Q10H [facility] Rx#:[id number] cefTRIAXone 2 gm In 100 Sodium Chloride 0.9% 50 ml @ 100 mls/hr IVPB Q24H [facility] Rx#:[id number] Other: Voiding Method Toilet Toilet # Voids 3 - Exam Gen: This is a 75-year-old male. He is resting better. To be comfortable and in no acute distress. HEENT: Head is atraumatic, normocephalic. Pupils equal, round. Sclerae is anicteric. NECK: Supple. No JVD. No lymphadenopathy. No thyromegaly. LUNGS: Rhonchi more so on the right. Improved since yesterday No intercostal retractions. Accessory muscle usage. HEART: Regular rate and rhythm. No murmur. ABDOMEN: Soft. Bowel sounds are present. No masses. No tenderness. EXTREMITIES: No pedal edema. No calf tenderness. Dorsalis pedis palpable bilaterally. NEUROLOGICAL: Patient is awake, alert and oriented x3. Cranial nerves 2 through 12 are grossly intact. - Labs CBC & Chem 7: 11/09/20 18:53 11/09/20 18:53 Labs: Abnormal Lab Results - Last 24 Hours (Table) 11/10/20 11/10/20 11/11/20 Range/Units 16:41 21:09 06:55 POC Glucose (mg/dL) 168 H 160 H 159 H (75-99) mg/dL 11/11/20 Range/Units 11:50 POC Glucose (mg/dL) 237 H (75-99) mg/dL Microbiology - Last 24 Hours (Table) 11/10/20 08:15 Gram Stain - Preliminary Sputum Sputum Culture - Preliminary Streptococcus pneumoniae 11/09/20 18:53 Blood Culture - Preliminary Blood No Growth after 24 hours Assessment and Plan Plan: 1. Acute exacerbation of moderate intermittent asthma and COPD exacerbation with underlying tracheobronchitis with community acquired pneumonia Sputum Culture positive for strep pneumonia Consult with pulmonary medicine. Continue albuterol 4 times daily and as needed, Symbicort 2 puffs twice daily, Rocephin and a azithromycin daily, Solu-Medrol 60 mg IV every 6 hours, Singulair 10 mg at bedtime. 2. Hypertension. Continue Losartan 3. Hyperlipidemia. Continue atorvastatin 20 mg at bedtime. 4. Hypothyroidism. Continue levothyroxine 50 g daily. 5. Remote history of tobacco use and dependence. 6. Daily alcohol abuse. Patient started on CIWA protocol , no withdrawal noted 7. GI prophylaxis. Protonix daily. 8. DVT prophylaxis. Heparin subcu.
[2020-11-11 17:03] LABS: Glucose,Whole Blood 169 mg/dL (75-99)
[2020-11-11 20:36] LABS: Glucose,Whole Blood 195 mg/dL (75-99)
[2020-11-11] MEDS: ATORVASTATIN 20 MG TAB PO SCH (21:26)
[2020-11-11] MEDS: LOSARTAN 50 MG TAB PO SCH (21:26)
[2020-11-11] MEDS: AZITHROMYCIN 500 MG TAB PO SCH (21:27)
[2020-11-11] MEDS: MONTELUKAST 10 MG TAB PO SCH (21:27)
[2020-11-12] MEDS: SODIUM CHLORIDE 0.9% 1,000 ML IV SCH ×3 (00:30→20:58)
[2020-11-12] MEDS: methylPREDNISolone SOD SUCCI 125 MG/2 ML VIAL IV SCH ×4 (05:52→23:19)
[2020-11-12] MEDS: LEVOTHYROXINE 50 MCG TAB PO SCH (05:52)
[2020-11-12 07:32] LABS: Glucose,Whole Blood 166 mg/dL (75-99)
[2020-11-12] MEDS: THIAMINE 100 MG TAB PO SCH ×2 (08:30→16:59)
[2020-11-12] MEDS: HEPARIN SODIUM,PORCINE 5,000 UNIT/ML 1 ML VIAL SQ SCH ×2 (08:30→20:57)
[2020-11-12] MEDS: INSULIN ASPART (NovoLOG) 100 UNIT/ML VIAL SQ SCH ×4 (08:30→20:58)
[2020-11-12] MEDS: LORATADINE 10 MG TAB PO SCH (08:30)
[2020-11-12] MEDS: PANTOPRAZOLE 40 MG TABLET PO SCH (08:30)
[2020-11-12] MEDS: ALBUTEROL NEBULIZED 2.5 MG/3 ML INHALATION SCH ×4 (09:03→20:13)
[2020-11-12] MEDS: FLUTICASONE SALMETEROL INHALATION SCH ×2 (09:03→20:13)
[2020-11-12 11:54] LABS: Glucose,Whole Blood 190 mg/dL (75-99)
[2020-11-12 15:06] VITALS: RESP 16
--- NOTE | 2020-11-12 15:50 | P.PN ---
Subjective Progress Note Date: 11/12/20 Principal diagnosis: Acute bilateral community-acquired pneumonia This is a very pleasant 75-year-old gentleman who follows with Dr. Willingham as his primary care provider. He has a history of hypothyroidism, hyperlipidemia, daily alcohol use, hypertension, moderate intermittent chronic bronchial asthma/COPD from previous smoking history and follows with Dr. Palencia in our office for the same. He remains on Advair, Singulair and albuterol in the outpatient setting. He presented to the emergency room yesterday after developing increasing shortness of breath cough congestion and fever. He initially had gone to [facility] to be tested for CoVID which was reported as negative. He was found to have bilateral pneumonia and admitted for the same. His x-ray reveals evidence of COPD with continued patchy infiltrates right greater than left slight worsening at the right midlung level. White count 13.2. Hemoglobin 12.5. Sodium 141. Potassium 4.2. Creatinine 0.92. Herman virus again not detected. He's been initiated on ceftriaxone and azithromycin along with IV Solu-Medrol and bronchodilators. Appendectomy is seen today in consultation on the regular medical floor. He is currently sitting up at the bedside. Awake and alert in no acute distress. He does have a productive cough of pale yellow sputum, occasional chills. Currently afebrile. Maintaining O2 saturation in the 90s on room air. The patient is seen today 11/11/2020 and a follow-up on the regular medical floor. He is currently resting comfortably in bed. Awake and alert in no acute distress. Breathing easier today compared to yesterday. Maintaining O2 saturations in the mid 90s on room air. Chest x-ray showed bilateral infiltrates right greater than left. Sputum cultures positive for Streptococcus pneumoniae. Remains on ceftriaxone and azithromycin along with bronchodilators and steroids. The patient is seen today 11/12/2020 in follow-up on the regular medical floor. He is currently sitting up at the bedside. Awake and alert in no acute distress. He is maintaining good O2 saturations in the 90s on room air. He's been afebrile. Blood glucose 190. He remains on ceftriaxone and azithromycin for the strep pneumonia positive sputum. Objective - Vital Signs Vital signs: Vital Signs Temp 97.6 F 11/12/20 14:00 Pulse 79 11/12/20 14:00 Resp 16 11/12/20 14:00 BP 160/80 11/12/20 14:00 Pulse Ox 94 L 11/12/20 14:00 Intake & Output 11/11/20 11/12/20 11/12/20 17:59 06:59 18:59 Intake Total Balance Intake: Intake, IV Titration Amount Sodium Chloride 0.9% 1, 000 ml @ 100 mls/hr IV . Q10H [facility] Rx#:[id number] cefTRIAXone 2 gm In Sodium Chloride 0.9% 50 ml @ 100 mls/hr IVPB Q24H [facility] Rx#:[id number] Oral Other: Voiding Method Toilet # Voids - Exam GENERAL EXAM: Alert, pleasant 75-year-old gentleman, on room air, comfortable in no apparent distress. HEAD: Normocephalic. EYES: Normal reaction of pupils, equal size. NOSE: Clear with pink turbinates. THROAT: No erythema or exudates. NECK: No masses, no JVD. CHEST: No chest wall deformity. LUNGS: Equal air entry with bilateral scattered rhonchi. CVS: S1 and S2 normal with no audible murmur, regular rhythm. ABDOMEN: No hepatosplenomegaly, normal bowel sounds, no guarding or rigidity. SPINE: No scoliosis or deformity SKIN: No rashes CENTRAL NERVOUS SYSTEM: No focal deficits, tone is normal in all 4 extremities. EXTREMITIES: There is no peripheral edema. No clubbing, no cyanosis. Peripheral pulses are intact. - Labs CBC & Chem 7: 11/09/20 18:53 11/09/20 18:53 Labs: Abnormal Lab Results - Last 24 Hours (Table) 11/11/20 11/11/20 11/12/20 Range/Units 16:52 20:34 07:27 POC Glucose (mg/dL) 169 H 195 H 166 H (75-99) mg/dL 11/12/20 Range/Units 11:50 POC Glucose (mg/dL) 190 H (75-99) mg/dL Microbiology - Last 24 Hours (Table) 11/10/20 08:15 Gram Stain - Final Sputum Sputum Culture - Final Streptococcus pneumoniae 11/09/20 18:53 Blood Culture - Preliminary Blood No Growth after 48 hours Assessment and Plan Assessment: 1 Acute exacerbation of mild intermittent chronic bronchial asthma, complicated by Streptococcus pneumoniae 2 Acute community-acquired pneumonia secondary to Streptococcus pneumoniae 3 Remote history of chronic tobacco dependence 4 Hypothyroidism 5 Hyperlipidemia 6 Hypertension 7 Daily alcohol use 8 History of Haemophilus influenza on previous bronchoscopy 2019 Plan: The patient was seen and evaluated by Dr. Roche Improved, currently on room air Continue with bronchodilators, IV Solu-Medrol, antibiotics Probable discharge in a.m. We will continue to follow I, the cosigning physician, performed a history & physical examination of the patient. Lungs sounds bilateral scattered rhonchi. Maintaining good O2 saturations in the 90s on room air. I discussed the assessment and plan of care with my nurse practitioner, Ellie Ball. I attest to the above note as dictated by her.
[2020-11-12] MEDS ORDERED: FLUTICASONE 50MCG/SPRAY NASAL 16GM EA NOSTRIL PRN (16:25)
--- NOTE | 2020-11-12 16:28 | P.PN ---
Subjective Progress Note Date: 11/12/20 HISTORY OF PRESENT ILLNESS This is a 75-year-old male patient of Dr. Patricia and Dr. Palencia with past medical history of asthma, hypertension, hyperlipidemia, hypothyroidism, remote history of tobacco use and dependence, daily alcohol use. Patient states that he has had problems with asthma since he was 5 years of age with significant sputum production and sinus plugging. He had a bronchoscopy in October [address] Palencia and states that after this he was feeling like $1 million. She gives history that he went for a bike ride on Friday and he did have some shortness of breath. On Friday he had increasing shortness of breath that continued through the week. Patient is complaining of chronic phlegm production and increasing difficulty with breathing as well as a low-grade fever that developed this week. He went to [employer] and had occult blood test that was negative. He was diagnosed with bilateral pneumonia instructed come into the hospital for further evaluation and treatment. At the time of evaluation, patient states that his breathing is much improved. Patient presented to [facility] emergency center. Chest x-ray revealed developing bilateral atelectasis and/or infiltrate on background of chronic parenchymal changes. Repeat chest x-ray this morning reveals COPD with continued patchy infiltrate right greater than left with slight worsening at the right midlung level. Patient was afebrile, heart rate 98, blood pressure 145/8 2, pulse ox 92% on room air. WBC 13.2, hemoglobin 12.5, platelet count 278. Electrolytes normal. BUN 21 creatinine 0.92, blood sugar 105. Troponin negative. ProBNP 170. CK 63. Patient admitted to the [facility] floor and consult requested with pulmonary medicine. 11/11 patient examined bedside. His resting comfortably in bed denies any cough or shortness of breath. Mentating oxygen saturation vitals are stable. Chest x-ray does show bilateral infiltrates right greater than the left. Sputum cultures positive for strep . a 2-D negatives BNP negative. Troponin negative. Gen. patient on current antibiotics and IV steroids. 11/12 patient examined bedside. Continues to have coughing spell on lying flat. Patient is upset about coughing phlegm and not getting better. Patient also co mplaining of sinus drainage and congestion along with shortness of breath on laying down. Flonase initiated for C denies this. Mucinex added at 1200 mg twice a day to help with congestion. Continue Solu-Medrol 60 every 6. Continue Rocephin and azithromycin for strep pneumoniae. Possible plan for discharge REVIEW OF SYSTEMS Constitutional: Reports fever, no chills, no night sweats. No weight change. No weakness, fatigue or lethargy. No daytime sleepiness. EENT: No headache. No blurred vision or double vision, no loss of vision. No loss of Hearing, no ringing in the ears, no dizziness. No nasal drainage or congestion. No epistaxis. No sore throat. Lungs: Reports shortness of breath, reports cough, reports acute on chronic sputum production. Reports wheezing. Cardiovascular: No chest pain, no lower extremity edema. No palpitations. No paroxysmal nocturnal dyspnea. No orthopnea. No lightheadedness or dizziness. No syncopal episodes. Abdominal: No abdominal pain. No nausea, vomiting. No diarrhea. No constipation. No bloody or tarry stools.. No loss of appetite. Genitourinary: No dysuria, increased frequency, urgency. No urinary retention. Musculoskeletal: No myalgias. No muscle weakness, no gait dysfunction, no frequent falls. No back pain. No neck pain. Integumentary: No wounds, no lesions. No rash or pruritus. No unusual bruising. No change in hair or nails. Neurologic: No aphasia. No facial droop. No change in mentation. No head injury. No headache. No paralysis. No paresthesia. Psychiatric: No depression. No anxiety. Endocrine: No abnormal blood sugars. No weight change. Objective - Vital Signs Vital signs: Vital Signs Temp 97.6 F 11/12/20 14:00 Pulse 82 11/12/20 15:56 Resp 16 11/12/20 14:00 BP 160/80 11/12/20 14:00 Pulse Ox 94 L 11/12/20 14:00 Intake & Output 11/11/20 11/12/20 11/12/20 17:59 06:59 18:59 Intake Total 200 Balance 200 Intake: Intake, IV Titration Amount Sodium Chloride 0.9% 1, 000 ml @ 100 mls/hr IV . Q10H [facility] Rx#:[id number] cefTRIAXone 2 gm In Sodium Chloride 0.9% 50 ml @ 100 mls/hr IVPB Q24H [facility] Rx#:[id number] Oral 200 Other: Voiding Method Toilet # Voids - Exam Gen: This is a 75-year-old male. He is resting better. To be comfortable and in no acute distress. HEENT: Head is atraumatic, normocephalic. Pupils equal, round. Sclerae is anicteric. NECK: Supple. No JVD. No lymphadenopathy. No thyromegaly. LUNGS: Rhonchi more so on the right. Improved since yesterday No intercostal retractions. Accessory muscle usage. HEART: Regular rate and rhythm. No murmur. ABDOMEN: Soft. Bowel sounds are present. No masses. No tenderness. EXTREMITIES: No pedal edema. No calf tenderness. Dorsalis pedis palpable bilaterally. NEUROLOGICAL: Patient is awake, alert and oriented x3. Cranial nerves 2 through 12 are grossly intact. - Labs CBC & Chem 7: 11/09/20 18:53 11/09/20 18:53 Labs: Abnormal Lab Results - Last 24 Hours (Table) 11/11/20 11/11/20 11/12/20 Range/Units 16:52 20:34 07:27 POC Glucose (mg/dL) 169 H 195 H 166 H (75-99) mg/dL 11/12/20 Range/Units 11:50 POC Glucose (mg/dL) 190 H (75-99) mg/dL Microbiology - Last 24 Hours (Table) 11/10/20 08:15 Gram Stain - Final Sputum Sputum Culture - Final Streptococcus pneumoniae 11/09/20 18:53 Blood Culture - Preliminary Blood No Growth after 48 hours Assessment and Plan Plan: 1. Acute exacerbation of moderate intermittent asthma and COPD exacerbation with underlying tracheobronchitis with community acquired pneumonia Sputum Culture positive for strep pneumonia Consult with pulmonary medicine. Continue albuterol 4 times daily and as needed, Symbicort 2 puffs twice daily, Rocephin and a azithromycin daily, Solu-Medrol 60 mg IV every 6 hours, Singulair 10 mg at bedtime. Mucinex 1200 mg twice a day. Flonase added twice a day 2. Hypertension. Continue Losartan 3. Hyperlipidemia. Continue atorvastatin 20 mg at bedtime. 4. Hypothyroidism. Continue levothyroxine 50 g daily. 5. Remote history of tobacco use and dependence. 6. Daily alcohol abuse. Patient started on CIWA protocol , no withdrawal noted 7. GI prophylaxis. Protonix daily. 8. DVT prophylaxis. Heparin subcu.
[2020-11-12 16:47] LABS: Glucose,Whole Blood 227 mg/dL (75-99)
[2020-11-12] MEDS: guaiFENesin 600 MG TABLET.ER PO SCH ×2 (16:59→23:19)
[2020-11-12 20:24] LABS: Glucose,Whole Blood 151 mg/dL (75-99)
[2020-11-12] MEDS: MONTELUKAST 10 MG TAB PO SCH (20:57)
[2020-11-12] MEDS: ATORVASTATIN 20 MG TAB PO SCH (20:57)
[2020-11-12] MEDS: LOSARTAN 50 MG TAB PO SCH (20:57)
[2020-11-12] MEDS: AZITHROMYCIN 500 MG TAB PO SCH (23:19)
[2020-11-13 01:40] LABS: Mycoplasma IgG Antibody (EIA) 2.78 INDEX (<=0.90); Mycoplasma IgM Antibody 0.17 INDEX (<=0.90)
[2020-11-13 02:19] VITALS: TEMP 97.9
[2020-11-13] MEDS: LEVOTHYROXINE 50 MCG TAB PO SCH (05:59)
[2020-11-13] MEDS: methylPREDNISolone SOD SUCCI 125 MG/2 ML VIAL IV SCH ×2 (05:59→11:38)
[2020-11-13] MEDS: SODIUM CHLORIDE 0.9% 1,000 ML IV SCH (05:59)
[2020-11-13 07:26] LABS: Glucose,Whole Blood 158 mg/dL (75-99)
[2020-11-13] MEDS: LORATADINE 10 MG TAB PO SCH (07:35)
[2020-11-13] MEDS: THIAMINE 100 MG TAB PO SCH (07:35)
[2020-11-13] MEDS: PANTOPRAZOLE 40 MG TABLET PO SCH (07:35)
[2020-11-13] MEDS: HEPARIN SODIUM,PORCINE 5,000 UNIT/ML 1 ML VIAL SQ SCH (07:35)
[2020-11-13] MEDS: INSULIN ASPART (NovoLOG) 100 UNIT/ML VIAL SQ SCH ×2 (07:35→11:38)
[2020-11-13] MEDS: guaiFENesin 600 MG TABLET.ER PO SCH (07:35)
[2020-11-13] MEDS: ALBUTEROL NEBULIZED 2.5 MG/3 ML INHALATION SCH ×2 (07:39→11:04)
[2020-11-13] MEDS: FLUTICASONE SALMETEROL INHALATION SCH (07:41)
[2020-11-13 08:11] VITALS: BP 166/84
--- NOTE | 2020-11-13 10:10 | P.DS ---
Providers Date of admission: 11/09/20 22:22 Expected date of discharge: 11/13/20 Attending physician: Amarjit Schaefer MD Consults: 11/09/20 22:22 Consult Physician Routine Consulting Provider: Seema Roche Consult Reason/Comments: Bilateral pneumonia, asthma exacerbation Do you want consulting provider notified?: Yes, Notify in am Primary care physician: [facility] Course: HISTORY OF PRESENT ILLNESS This is a 75-year-old male patient of Dr. Patricia and Dr. Palencia with past medical history of asthma, hypertension, hyperlipidemia, hypothyroidism, remote history of tobacco use and dependence, daily alcohol use. Patient states that he has had problems with asthma since he was 5 years of age with significant sputum production and sinus plugging. He had a bronchoscopy in October [address] Palencia and states that after this he was feeling like $1 million. She gives history that he went for a bike ride on Friday and he did have some shortness of breath. On Friday he had increasing shortness of breath that continued through the week. Patient is complaining of chronic phlegm production and increasing difficulty with breathing as well as a low-grade fever that developed this week. He went to [facility] and had occult blood test that was negative. He was diagnosed with bilateral pneumonia instructed come into the hospital for further evaluation and treatment. At the time of evaluation, patient states that his breathing is much improved. Patient presented to [facility] emergency center. Chest x-ray revealed developing bilateral atelectasis and/or infiltrate on background of chronic parenchymal changes. Repeat chest x-ray this morning reveals COPD with continued patchy infiltrate right greater than left with slight worsening at the right midlung level. Patient was afebrile, heart rate 98, blood pressure 145/82, pulse ox 92% on room air. WBC 13.2, hemoglobin 12.5, platelet count 278. Electrolytes normal. BUN 21 creatinine 0.92, blood sugar 105. Troponin negative. ProBNP 170. CK 63. Patient admitted to the [facility] floor and consult requested with pulmonary medicine. 11/11 patient examined bedside. His resting comfortably in bed denies any cough or shortness of breath. Mentating oxygen saturation vitals are stable. Chest x-ray does show bilateral infiltrates right greater than the left. Sputum cultures positive for strep . a 2-D negatives BNP negative. Troponin negative. Gen. patient on current antibiotics and IV steroids. 11/12 patient examined bedside. Continues to have coughing spell on lying flat. Patient is upset about coughing phlegm and not getting better. Patient also complaining of sinus drainage and congestion along with shortness of breath on laying down. Flonase initiated for C denies this. Mucinex added at 1200 mg twice a day to help with congestion. Continue Solu-Medrol 60 every 6. Continue Rocephin and azithromycin for strep pneumoniae. Possible plan for discharge 11/13: Patient states that he is breathing a lot better. Does have decreased air exchange on the right side but overall lungs are improving. He has a nebulizer at home. We will order incentive spirometry to go home with the patient as well. He has been afebrile, heart rate 73, blood pressure 166/84, pulse ox 95% on room air. Blood sugars have been elevated secondary to steroids. No known history of diabetes. Patient will be discharged home today in stable condition. DISCHARGE DIAGNOSES 1. Acute exacerbation of moderate intermittent asthma and COPD exacerbation with underlying tracheobronchitis with community acquired pneumonia 2. Hypertension. 3. Hyperlipidemia. 4. Hypothyroidism. 5. Remote history of tobacco use and dependence. 6. Daily alcohol abuse. DISCHARGE PLAN Home Impression and plan of care have been directed as dictated by the signing physician. Bethany Bradshaw nurse practitioner acting as scribe for signing physician. Patient Condition at Discharge: Good Plan - Discharge Summary Discharge Rx Participant: No New Discharge Prescriptions: New Fluticasone Nasal [place] [Flonase Nasal [place]] 2 spray EA NOSTRIL DAILY PRN #1 spr PRN Reason: Allergy Symptoms guaiFENesin [Mucinex] 1,200 mg PO Q12HR tablet.er predniSONE 0 mg PO DIRECTED #30 tab Pantoprazole [Protonix] 40 mg PO AC-BRKFST #30 tablet. Azithromycin [Zithromax] 500 mg PO Q24H #5 tab Amoxicillin/Potassium Clav [Augmentin 875-125 Tablet] 1 each PO Q12HR #10 tab Albuterol Nebulized [Ventolin Nebulized] 2.5 mg INHALATION RT-QID #0 ml Continue Montelukast [Singulair] 10 mg PO HS Levothyroxine Sodium [Synthroid] 50 mcg PO DAILY Losartan Potassium 100 mg PO HS Atorvastatin [Lipitor] 20 mg PO HS Fluticasone/Salmeterol [Advair Hfa 230-21 Mcg Inhaler] 2 puff INHALATION RT- BID Loratadine 10 mg PO DAILY Discharge Medication List Atorvastatin [Lipitor] 20 mg PO HS 10/21/19 [History] Levothyroxine Sodium [Synthroid] 50 mcg PO DAILY 10/21/19 [History] Losartan Potassium 100 mg PO HS 10/21/19 [History] Montelukast [Singulair] 10 mg PO HS 10/21/19 [History] Fluticasone/Salmeterol [Advair Hfa 230-21 Mcg Inhaler] 2 puff INHALATION RT-BID 11/09/20 [History] Loratadine 10 mg PO DAILY 11/09/20 [History] Albuterol Nebulized [Ventolin Nebulized] 2.5 mg INHALATION RT-QID #0 ml 11/13/20 [Rx] Amoxicillin/Potassium Clav [Augmentin 875-125 Tablet] 1 each PO Q12HR #10 tab 11/13/20 [Rx] Azithromycin [Zithromax] 500 mg PO Q24H #5 tab 11/13/20 [Rx] Fluticasone Nasal [place] [Flonase Nasal [place]] 2 spray EA NOSTRIL DAILY PRN #1 spr 11/13/20 [Rx] Pantoprazole [Protonix] 40 mg PO AC-BRKFST #30 tablet.dr 11/13/20 [Rx] guaiFENesin [Mucinex] 1,200 mg PO Q12HR tablet.er 11/13/20 [Rx] predniSONE 0 mg PO DIRECTED #30 tab 11/13/20 [Rx] Follow up Appointment(s)/Referral(s): Brock Patricia MD [Medical Doctor] - 1 Week (office not answering Please call to schedule appointment) Rahul Palencia DO [Doctor of Osteopathic Medicine] - 11/21/20 2:15 pm Patient Instructions/Handouts: COPD (Chronic Obstructive Pulmonary Disease) (DC), Pneumonia (DC) Discharge Disposition: HOME SELF-CARE
[2020-11-13 11:27] VITALS: PULSE 87
[2020-11-13 11:30] LABS: Glucose,Whole Blood 238 mg/dL (75-99)
--- NOTE | 2020-11-13 16:38 | P.PN ---
Subjective Progress Note Date: 11/13/20 Principal diagnosis: Acute bilateral community acquired pneumonia This is a very pleasant 75-year-old gentleman who follows with Dr. Willingham as his primary care provider. He has a history of hypothyroidism, hyperlipidemia, daily alcohol use, hypertension, moderate intermittent chronic bronchial asthma/COPD from previous smoking history and follows with Dr. Palencia in our office for the same. He remains on Advair, Singulair and albuterol in the outpatient setting. He presented to the emergency room yesterday after developing increasing shortness of breath cough congestion and fever. He initially had gone to [place] to be tested for CoVID which was reported as negative. He was found to have bilateral pneumonia and admitted for the same. His x-ray reveals evidence of COPD with continued patchy infiltrates right greater than left slight worsening at the right midlung level. White count 13.2. Hemoglobin 12.5. Sodium 141. Potassium 4.2. Creatinine 0.92. Herman virus again not detected. He's been initiated on ceftriaxone and azithromycin along with IV Solu-Medrol and bronchodilators. Appendectomy is seen today in consultation on the regular medical floor. He is currently sitting up at the bedside. Awake and alert in no acute distress. He does have a productive cough of pale yellow sputum, occasional chills. Currently afebrile. Maintaining O2 saturation in the 90s on room air. The patient is seen today 11/11/2020 and a follow-up on the regular medical floor. He is currently resting comfortably in bed. Awake and alert in no acute distress. Breathing easier today compared to yesterday. Maintaining O2 saturations in the mid 90s on room air. Chest x-ray showed bilateral infiltrates right greater than left. Sputum cultures positive for Streptococcus pneumoniae. Remains on ceftriaxone and azithromycin along with bronchodilators and steroids. The patient is seen today 11/12/2020 in follow-up on the regular medical floor. He is currently sitting up at the bedside. Awake and alert in no acute distress. He is maintaining good O2 saturations in the 90s on room air. He's been afebrile. Blood glucose 190. He remains on ceftriaxone and azithromycin for the strep pneumonia positive sputum. On 11/13/2000 patient seen in follow-up on medical surgical floor, she is on room air, she is breathing comfortably, vital signs have been stable, no fever or chills. Sputum culture showed Streptococcus pneumonia. No worsening dyspnea and hypoxia, no worsening cough or congestion. Patient has been treated with azithromycin and Rocephin. No fever or chills, no new labs or chest x-ray. Last chest x-ray was on 11/11/2020 showing small partially consolidative opacities in the lung bases. Objective - Vital Signs Vital signs: Vital Signs Temp 97.9 F 11/13/20 08:00 Pulse 87 11/13/20 11:20 Resp 16 11/13/20 08:00 BP 166/84 11/13/20 08:00 Pulse Ox 95 11/13/20 08:00 Intake & Output 11/12/20 11/13/20 11/13/20 18:59 06:59 18:59 Intake Total 1400 Balance 1400 Intake: Intake, IV Titration 1200 Amount Sodium Chloride 0.9% 1, 1200 000 ml @ 100 mls/hr IV . Q10H [facility] Rx#:[id number] Oral 200 Other: Voiding Method Toilet Toilet Toilet - Exam GENERAL EXAM: Alert, very pleasant 75-year-old white female, on room air, with pulse ox of 95% comfortable in no apparent distress. HEAD: Normocephalic/atraumatic. EYES: Normal reaction of pupils, equal size. Conjunctiva pink, sclera white. NOSE: Clear with pink turbinates. THROAT: No erythema or exudates. NECK: No masses, no JVD, no thyroid enlargement, no adenopathy. CHEST: No chest wall deformity. Symmetrical expansion. LUNGS: Equal air entry with no crackles, wheeze, rhonchi or dullness. CVS: Regular rate and rhythm, normal S1 and S2, no gallops, no murmurs, no rubs ABDOMEN: Soft, nontender. No hepatosplenomegaly, normal bowel sounds, no guarding or rigidity. EXTREMITIES: No clubbing, no edema, no cyanosis, 2+ pulses and upper and lower extremities. MUSCULOSKELETAL: Muscle strength and tone normal. SPINE: No scoliosis or deformity SKIN: No rashes CENTRAL NERVOUS SYSTEM: Alert and oriented -3. No focal deficits, tone is normal in all 4 extremities. PSYCHIATRIC: Alert and oriented -3. Appropriate affect. Intact judgment and insight. - Labs CBC & Chem 7: 11/09/20 18:53 11/09/20 18:53 Labs: Abnormal Lab Results - Last 24 Hours (Table) 11/10/20 11/12/20 11/12/20 Range/Units 09:21 16:41 20:23 POC Glucose (mg/dL) 227 H 151 H (75-99) mg/dL Mycoplasma pneumon IgG 2.78 H (<=0.90) INDEX 11/13/20 11/13/20 Range/Units 07:25 11:26 POC Glucose (mg/dL) 158 H 238 H (75-99) mg/dL Mycoplasma pneumon IgG (<=0.90) INDEX Microbiology - Last 24 Hours (Table) 11/09/20 18:53 Blood Culture - Preliminary Blood No Growth after 72 hours Assessment and Plan Plan: Assessment: #1. Acute exacerbation of mild intermittent chronic bronchial asthma, complicated by Streptococcus pneumonia #2. Acute community acquired pneumonia secondary to Streptococcus pneumonia graft #3. Remote history of chronic tobacco dependence #4. Hypothyroidism #5. Hyperlipidemia #6. Hypertension #7. Daily alcohol use #8. History of Haemophilus influenza previous BAL from 2019 Plan: Patient has been stable, no worsening dyspnea hypoxia, breathing has improved, no fever chills, she's been treated with a combination of azithromycin and Rocephin for Streptococcus pneumonia. Clinically stable, will need outpatient follow-up with Dr. Penaloza in the office in 7-10 days. I performed a history & physical examination of the patient and discussed their management with my nurse practitioner, Jody Patel. I reviewed the nurse practitioner's note and agree with the documented findings and plan of care. Lung sounds are positive for diminished breath sounds The findings and the impression was discussed with the patient. I attest to the documentation by the nurse practitioner. Time with Patient: Less than 30
== END 2020-11-13 14:21 | disposition home or self-care (01) | DRG 194 ==
LOC: EC 18:13 → 4SSUR 22:22
PROVIDERS: ADMIT Internal Medicine; ATTEND Internal Medicine
DX: J13 Pneumonia due to Streptococcus pneumoniae (principal); J44.0 Chronic obstructive pulmonary disease with (acute) lower respiratory infection; J45.21 Mild intermittent asthma with (acute) exacerbation; J44.1 Chronic obstructive pulmonary disease with (acute) exacerbation; Z20.822 Contact with and (suspected) exposure to COVID-19; E78.5 Hyperlipidemia, unspecified; I10 Essential (primary) hypertension; E03.9 Hypothyroidism, unspecified; F10.10 Alcohol abuse, uncomplicated; E66.9 Obesity, unspecified; R73.9 Hyperglycemia, unspecified; T38.0X5A Adverse effect of glucocorticoids and synthetic analogues, initial encounter; Z68.29 Body mass index [BMI] 29.0-29.9, adult; Z79.899 Other long term (current) drug therapy; Z79.51 Long term (current) use of inhaled steroids; Z79.890 Hormone replacement therapy; Z90.49 Acquired absence of other specified parts of digestive tract; Z87.891 Personal history of nicotine dependence; Z88.8 Allergy status to other drugs, medicaments and biological substances; Z82.3 Family history of stroke; Z80.7 Family history of other malignant neoplasms of lymphoid, hematopoietic and related tissues; Z82.49 Family history of ischemic heart disease and other diseases of the circulatory system
CPT/HCPCS: 36415; 71046; 71275; 80053; 82550; 83605; 83735; 83880; 84145; 84484; 85025; 85610; 85730; 86644; 86645; 86738; 87040; 87070; 87077; 87186; 87205; 87635; 93005; 94640; 94760; 96361; 96365; 96366; 96375; 99285

== ENCOUNTER 2021-03-12 17:04 | Emergency (ER) | payer MEDICARE, BC ==
[2021-03-12 17:13] VITALS: BP 155/82; PULSE 78; RESP 20; TEMP 98
--- NOTE | 2021-03-12 18:14 | XR ---
EXAMINATION TYPE: XR hand complete RT DATE OF EXAM: 03/12/2021 COMPARISON: NONE HISTORY: Pain TECHNIQUE: 3 views FINDINGS: There is soft tissue swelling of the dorsum of the hand. There is some narrowing of the sec ond and third MP joints and mild subluxation. There are cystic changes and multiple IP joints. Carpal bones are intact. IMPRESSION: Abnormalities consistent with inflammatory arthritis. This could be combined osteoarthrit is and rheumatoid arthritis. No fracture.
[2021-03-12] MEDS ORDERED: predniSONE 20 MG TAB PO STA (18:22)
--- NOTE | 2021-03-12 18:22 | ED ---
General Adult HPI - General Chief complaint: Skin/Abscess/Foreign Body Stated complaint: R Hand Swelling Time Seen by Provider: 03/12/21 17:15 Source: patient Mode of arrival: ambulatory Limitations: no limitations - History of Present Illness Initial comments: 76-year-old male presents to emergency Department with a chief complaint of pain and swelling in the hand. Patient reports this occurred about 3 days ago after she was working on his scooter. Patient reports developed gradual onset of pain and swelling, particularly over the second and third MCP joints of the right hand. He denies any direct injuries to the hand. Reports he feels warm and tender to the touch. States he has limited range of motion in his fingers due to the pain. He denies any streaking. Denies any fevers or chills. Does have history of arthritis but no diagnosis of rheumatoid arthritis. No history of gout. - Related Data Home Medications Medication Instructions Recorded Confirmed Atorvastatin [Lipitor] 20 mg PO HS 10/21/19 11/09/20 Levothyroxine Sodium [Synthroid] 50 mcg PO DAILY 10/21/19 11/09/20 Losartan Potassium 100 mg PO HS 10/21/19 11/09/20 Montelukast [Singulair] 10 mg PO HS 10/21/19 11/09/20 Fluticasone/Salmeterol [Advair Hfa 2 puff INHALATION RT-BID 11/09/20 11/09/20 230-21 Mcg Inhaler] Loratadine 10 mg PO DAILY 11/09/20 11/09/20 Previous Rx's Medication Instructions Recorded Albuterol Nebulized [Ventolin 2.5 mg INHALATION RT-QID #0 ml 11/13/20 Nebulized] Amoxicillin/Potassium Clav 1 each PO Q12HR #10 tab 11/13/20 [Augmentin 875-125 Tablet] Azithromycin [Zithromax] 500 mg PO Q24H #5 tab 11/13/20 Fluticasone Nasal [place] [Flonase 2 spray EA NOSTRIL DAILY PRN #1 spr 11/13/20 Nasal [place]] Pantoprazole [Protonix] 40 mg PO RIOS-BRKFSAlva #30 tablet. 11/13/20 guaiFENesin [Mucinex] 1,200 mg PO Q12HR tablet.er 11/13/20 predniSONE 0 mg PO DIRECTED #30 tab 11/13/20 predniSONE 50 mg PO DAILY #5 tab 03/12/21 Allergies Allergy/AdvReac Type Severity Reaction Status Date / Time ipratropium Allergy Unknown Verified 03/12/21 17:13 Review of Systems ROS Statement: Those systems with pertinent positive or pertinent negative responses have been documented in the HPI. ROS Other: All systems not noted in ROS Statement are negative. Past Medical History Past Medical History: Asthma, Hyperlipidemia, Hypertension, Thyroid Disorder History of Any Multi-Drug Resistant Organisms: None Reported Past Surgical History: Appendectomy, Back Surgery Past Anesthesia/Blood Transfusion Reactions: No Reported Reaction Past Psychological History: No Psychological Hx Reported Smoking Status: Former smoker Past Alcohol Use History: Daily Past Drug Use History: None Reported General Exam Limitations: no limitations General appearance: alert, in no apparent distress Head exam: Present: atraumatic, normocephalic, normal inspection Eye exam: Present: normal appearance, PERRL, EOMI Pupils: Present: normal accommodation ENT exam: Present: normal exam, normal oropharynx, mucous membranes moist Neck exam: Present: normal inspection, full ROM. Absent: tenderness, lymphadenopathy Respiratory exam: Present: normal lung sounds bilaterally. Absent: respiratory distress, wheezes Cardiovascular Exam: Present: regular rate, normal rhythm, normal heart sounds. Absent: systolic murmur Extremities exam: Present: full ROM (Limited range of motion due to the swelling), tenderness (Second and third MCP joint swelling and tenderness), normal capillary refill, joint swelling (Right hand), other (Sensation intact in the right hand. No streaking). Absent: normal inspection (Swelling noted in the right hand, particularly of the second and third MCP joints), pedal edema Back exam: Present: normal inspection, full ROM. Absent: tenderness Neurological exam: Present: alert, oriented X3 Psychiatric exam: Present: normal affect, normal mood Skin exam: Present: warm, dry, intact, normal color Course Vital Signs 03/12/21 17:09 Temperature 98.0 F Pulse Rate 78 Respiratory 20 Rate Blood Pressure 155/82 O2 Sat by Pulse 95 Oximetry Medical Decision Making - Medical Decision Making 76-year-old male presents to emergency Department with a chief complaint right hand swelling. On Physical examination, warmth, erythema and swelling of the second and third digits. Vital signs within normal limits. X-ray reveals likely reactive arthritis. Patient was started on prednisone here. Will be discharged with a 5 day course of prednisone. He has an appointment in 2 days with his primary care physician. Return parameters were thoroughly discussed the patient is understanding and agreeable. Case discussed with physician Disposition Clinical Impression: Hand swelling, Inflammatory arthritis Disposition: HOME SELF-CARE Condition: Stable Instructions (If sedation given, give patient instructions): Arthritis (ED) Additional Instructions: Take prescribed medication as directed. Return to emergency department if symptoms worsen. Prescriptions: predniSONE 50 mg PO DAILY #5 tab Is patient prescribed a controlled substance at d/c from ED?: No Referrals: None,Stated [Primary Care Provider] - 1-2 days Time of Disposition: 18:22
== END 2021-03-12 18:54 | disposition home or self-care (01) ==
LOC: EC 17:04
DX: M19.041 Primary osteoarthritis, right hand (principal); J45.909 Unspecified asthma, uncomplicated; I10 Essential (primary) hypertension; E78.5 Hyperlipidemia, unspecified; Z87.891 Personal history of nicotine dependence; Z79.890 Hormone replacement therapy; Z79.899 Other long term (current) drug therapy; Z88.8 Allergy status to other drugs, medicaments and biological substances; Z79.51 Long term (current) use of inhaled steroids
CPT/HCPCS: 99283; 73130; J7512

== ENCOUNTER → 2021-11-01 | Outpatient (CLI) | payer MEDICARE, BC ==
--- NOTE | 2021-11-01 15:10 | US ---
EXAMINATION TYPE: US carotid duplex BILAT DATE OF EXAM: 11/01/2021 COMPARISON: NONE CLINICAL HISTORY: I65.23 CAROTID STENOSIS. EXAM MEASUREMENTS: RIGHT: Peak Systolic Velocity (PSV) cm/sec ----- Right CCA: 58.1 ----- Right ICA: 83.6 ----- Right ECA: 101.7 ICA/CCA ratio: 1.4 RIGHT: End Diastole cm/sec ----- Right CCA: 14.9 ----- Right ICA: 28.6 ----- Right ECA: 13.5 LEFT: Peak Systolic Velocity (PSV) cm/sec ----- Left CCA: 68.4 ----- Left ICA: 72.4 ----- Left ECA: 95.4 ICA/CCA ratio: 1.1 LEFT: End Diastole cm/sec ----- Left CCA: 13.5 ----- Left ICA: 19.7 ----- Left ECA: 12.0 VERTEBRALS (direction of flow): Right Vertebral: Antegrade Left Vertebral: Antegrade Rhythm: Normal No significant stenosis IMPRESSION: No significant flow-limiting stenosis. Criteria for Assigning % of Stenosis / Diameter reduction (Estimation based on the indirect measurements of the internal carotid artery velocities (ICA PSV). 1. Normal (no stenosis)=ICA PSV < 125 cm/s: ratio < 2.0: ICA EDV<40 cm/s. 2. Less than 50% stenosis=ICA PSV < 125 cm/s: ratio < 2.0: ICA EDV<40 cm/s. 3. 50 to 69% stenosis=ICA PSV of 125 to 230 cm/s: ration 2.0 ? 4.0: ICA EDV 40-100 cm/s. 4. Greater than 70% stenosis to near occlusion= ICA PSV > 230 cm/s: ratio > 4.0: ICA EDV > 100 cm/s. 5. Near occlusion= ICA PSV velocities may be low or undetectable: variable ratio and ICA EDV. 6. Total occlusion=unable to detect flow.
--- NOTE | 2021-11-02 09:00 | ECHOF ---
Referral Reason:I65.23 Carotid stenosis I34.0 Mitral valve regurgi MEASUREMENTS -------- HEIGHT: 175.3 cm WEIGHT: 93.0 kg BP: 157/92 RVIDd: 3.5 cm (< 3.3) IVSd: 1.3 cm (0.6 - 1.1) LVIDd: 4.5 cm (3.9 - 5.3) LVPWd: 1.3 cm (0.6 - 1.1) IVSs: 1.7 cm LVIDs: 3.0 cm LVPWs: 1.9 cm LA Diam: 3.3 cm (2.7 - 3.8) LAESV Index (A-L): 22.03 ml/m Ao Diam: 3.8 cm (2.0 - 3.7) AV Cusp: 1.5 cm (1.5 - 2.6) MV EXCURSION: 10.412 mm (> 18.000) MV EF SLOPE: 66 mm/s (70 - 150) EPSS: 1.0 cm MV E Fareed: 0.78 m/s MV DecT: 243 ms MV A Fareed: 1.00 m/s MV E/A Ratio: 0.78 AV maxP.20 mmHg AV meanP.68 mmHg FINDINGS -------- Sinus rhythm. This was a technically adequate study. The left ventricular size is normal. There is mild concentric left ventricular hypertrophy. Overa ll left ventricular systolic function is normal with, an EF between 60 - 65 %. The right ventricle is mildly enlarged. The left atrium is normal in size. The right atrium is normal in size. Interatrial and interventricular septum intact. Aortic valve is trileaflet and is mildly thickened. There is mild aortic valve sclerosis. There i s mild aortic regurgitation. There is mild aortic stenosis present. Peak/mean gradient across the Aortic Valve is 14.20mmHg / 7.68mmHg. The mitral valve is normal. The tricuspid valve appears structurally normal. Trace/mild (physiologic) pulmonic regurgitation. The aortic root is dilated measuring 3.8cm. Normal inferior vena cava with less than 50% inspiratory collapse consistent with estimated right atr ial pressure of 15 mmHg. There is no pericardial effusion. CONCLUSIONS -------- 1. The left ventricular size is normal. 2. There is mild concentric left ventricular hypertrophy. 3. Overall left ventricular systolic function is normal with, an EF between 60 - 65 %. 4. The right ventricle is mildly enlarged. 5. Aortic valve is trileaflet and is mildly thickened. 6. There is mild aortic valve sclerosis. 7. There is mild aortic regurgitation. 8. There is mild aortic stenosis present. 9. Peak/mean gradient across the Aortic Valve is 14.20mmHg / 7.68mmHg. 10. Trace/mild (physiologic) pulmonic regurgitation. 11. The aortic root is dilated measuring 3.8cm. 12. Normal inferior vena cava with less than 50% inspiratory collapse consistent with estimated right atrial pressure of 15 mmHg. 13. There is no pericardial effusion. [employer]: Aylssa Whitt RDCS
== END | disposition home or self-care (01) ==
LOC: RADECHMAIN 13:39
PROVIDERS: ATTEND Internal Medicine
DX: I65.23 Occlusion and stenosis of bilateral carotid arteries (principal); I34.0 Nonrheumatic mitral (valve) insufficiency
CPT/HCPCS: 93306; 93880

== ENCOUNTER 2021-11-25 23:15 | Inpatient (IN) | payer MEDICARE, BC ==
--- NOTE | 2021-11-26 00:28 | XR ---
EXAMINATION TYPE: XR chest 2V DATE OF EXAM: 11/25/2021 COMPARISON: 07/31/2021 HISTORY: Cough and congestion TECHNIQUE: 2 views FINDINGS: Heart is normal. Costophrenic angles are clear. There are no hilar masses. Thoracic aorta i s atheromatous. Bony thorax is intact. There are increased markings right lower lobe. IMPRESSION: No active cardiopulmonary disease. Mild fibrotic changes at the lung bases. There is mad[place] ring of the infiltrate right lower lobe to a large extent compared to old exam.
[2021-11-26] MEDS ORDERED: SODIUM CHLORIDE 0.9% 1,000 ML IV STA ×3 (00:50→02:20)
[2021-11-26] MEDS ORDERED: ALBUTEROL NEBULIZED 2.5 MG/3 ML INHALATION STA (00:51)
--- NOTE | 2021-11-26 00:55 | ED ---
SOB HPI - General Chief Complaint: Shortness of Breath Stated Complaint: Fever, possible pneumonia Time Seen by Provider: 11/26/21 00:50 Source: patient, RN notes reviewed, old records reviewed Mode of arrival: ambulatory Limitations: no limitations - History of Present Illness Initial Comments: This is a 76-year-old male to the emergency department for evaluation. Patient presents today for evaluation regards to severe shortness of breath cough and congestion. Issue has increasing cough and congestion recent diagnosis of pneumonia. Patient also notes fever and chills at home. No chest pain. Recent hospitalization 2 weeks ago. States symptoms did improve but is now progressively worsened MD Complaint: shortness of breath, cough -: hour(s) Severity: mild Severity scale (1-10): 3 Quality: dull Consistency: constant Improves With: nothing Worsens With: exertion, movement Known History Of: COPD Context: recent URI, recent illness (Recent pneumonia) Associated Symptoms: fever, cough, sputum production, palpitations (Palpitations), other Treatments Prior to Arrival: bronchodilator - Related Data Home Medications Medication Instructions Recorded Confirmed Atorvastatin [Lipitor] 20 mg PO HS 10/21/19 11/09/20 Levothyroxine Sodium [Synthroid] 50 mcg PO DAILY 10/21/19 11/09/20 Losartan Potassium 100 mg PO HS 10/21/19 11/09/20 Montelukast [Singulair] 10 mg PO HS 10/21/19 11/09/20 Fluticasone/Salmeterol [Advair Hfa 2 puff INHALATION RT-BID 11/09/20 11/09/20 230-21 Mcg Inhaler] Loratadine 10 mg PO DAILY 11/09/20 11/09/20 Previous Rx's Medication Instructions Recorded Albuterol Nebulized [Ventolin 2.5 mg INHALATION RT-QID #0 ml 11/13/20 Nebulized] Amoxicillin/Potassium Clav 1 each PO Q12HR #10 tab 11/13/20 [Augmentin 875-125 Tablet] Azithromycin [Zithromax] 500 mg PO Q24H #5 tab 11/13/20 Fluticasone Nasal [place] [Flonase 2 spray EA NOSTRIL DAILY PRN #1 spr 11/13/20 Nasal [place]] Pantoprazole [Protonix] 40 mg PO RIOS-REMY #30 tablet. 11/13/20 guaiFENesin [Mucinex] 1,200 mg PO Q12HR tablet.er 11/13/20 predniSONE 0 mg PO DIRECTED #30 tab 11/13/20 predniSONE 50 mg PO DAILY #5 tab 03/12/21 Allergies Allergy/AdvReac Type Severity Reaction Status Date / Time ipratropium Allergy Unknown Verified 11/25/21 23:22 Review of Systems ROS Statement: Those systems with pertinent positive or pertinent negative responses have been documented in the HPI. ROS Other: All systems not noted in ROS Statement are negative. Past Medical History Past Medical History: Asthma, Hyperlipidemia, Hypertension, Thyroid Disorder History of Any Multi-Drug Resistant Organisms: None Reported Past Surgical History: Appendectomy, Back Surgery Past Anesthesia/Blood Transfusion Reactions: No Reported Reaction Past Psychological History: No Psychological Hx Reported Smoking Status: Former smoker Past Alcohol Use History: Daily Past Drug Use History: None Reported General Exam Limitations: no limitations General appearance: alert, in no apparent distress Head exam: Present: atraumatic, normocephalic, normal inspection Eye exam: Present: normal appearance, PERRL, EOMI. Absent: scleral icterus, conjunctival injection, periorbital swelling ENT exam: Present: normal exam, mucous membranes dry Neck exam: Present: normal inspection. Absent: tenderness, meningismus, lymphadenopathy Respiratory exam: Present: wheezes, accessory muscle use, decreased breath sounds, prolonged expiratory. Absent: respiratory distress, rales, rhonchi, stridor Cardiovascular Exam: Present: normal rhythm, tachycardia, normal heart sounds. Absent: systolic murmur, diastolic murmur, rubs, gallop, clicks GI/Abdominal exam: Present: soft, normal bowel sounds. Absent: distended, tenderness, guarding, rebound, rigid Extremities exam: Present: normal inspection, full ROM, normal capillary refill. Absent: tenderness, pedal edema, joint swelling, calf tenderness Back exam: Present: normal inspection Neurological exam: Present: alert, oriented X3, CN II-XII intact Psychiatric exam: Present: normal affect, normal mood Skin exam: Present: warm, dry, intact, normal color. Absent: rash Course Vital Signs 11/25/21 11/26/21 11/26/21 23:16 01:12 01:20 Temperature 99.4 F 101.8 F H Pulse Rate 115 H 102 H 100 Respiratory 24 22 Rate Blood Pressure 179/84 163/96 O2 Sat by Pulse 96 94 L Oximetry 11/26/21 01:31 Temperature Pulse Rate 103 H Respiratory Rate Blood Pressure O2 Sat by Pulse Oximetry - Reevaluation(s) Reevaluation #1: 11/26/21 02:26 Medical record is reviewed Reevaluation #2: 11/26/21 02:26 Patient has no improvement cough and congestion, shortness of breath here in the ER Reevaluation #3: 11/26/21 02:27 Patient informed results and questions answered - Consultations Consultation #1: Spoke with Dr. Milton who agrees to admit this patient Medical Decision Making - Medical Decision Making 76-year-old male DF with febrile illness, bronchitis exacerbation with fever. Patient be admitted for breathing treatments and steroids will place on antibiotics secondary to possible underlying pneumonia. - Lab Data Result diagrams: 11/26/21 01:02 11/26/21 01:02 Lab Results 11/26/21 11/26/21 11/26/21 Range/Units 01:02 01:02 01:02 WBC 8.9 (3.8-10.6) k/uL RBC 4.47 (4.30-5.90) m/uL Hgb 13.9 (13.0-17.5) gm/dL Hct 41.5 (39.0-53.0) % MCV 92.8 (80.0-100.0) fL MCH 31.1 (25.0-35.0) pg MCHC 33.6 (31.0-37.0) g/dL RDW 14.7 (11.5-15.5) % Plt Count 171 (150-450) k/uL MPV 7.9 Neutrophils % 83 % Lymphocytes % 7 % Monocytes % 6 % Eosinophils % 1 % Basophils % 1 % Neutrophils # 7.4 (1.3-7.7) k/uL Lymphocytes # 0.6 L (1.0-4.8) k/uL Monocytes # 0.5 (0-1.0) k/uL Eosinophils # 0.1 (0-0.7) k/uL Basophils # 0.1 (0-0.2) k/uL PT 10.8 (9.0-12.0) sec INR 1.0 (<1.2) APTT 23.6 (22.0-30.0) sec D-Dimer 0.42 (<0.60) mg/L FEU Sodium 134 L (137-145) mmol/L Potassium 4.5 (3.5-5.1) mmol/L Chloride 99 (98-107) mmol/L Carbon Dioxide 24 (22-30) mmol/L Anion Gap 11 mmol/L BUN 17 (9-20) mg/dL Creatinine 0.86 (0.66-1.25) mg/dL Est GFR (CKD-EPI)AfAm >90 (>60 ml/min/1.73 sqM) Est GFR (CKD-EPI)NonAf 83 (>60 ml/min/1.73 sqM) Glucose 101 H (74-99) mg/dL Calcium 9.2 (8.4-10.2) mg/dL Magnesium 1.8 (1.6-2.3) mg/dL Total Bilirubin 1.2 (0.2-1.3) mg/dL AST 41 (17-59) U/L ALT 25 (4-49) U/L Alkaline Phosphatase 101 (38-126) U/L Troponin I (0.000-0.034) ng/mL NT-Pro-B Natriuret Pep pg/mL Total Protein 7.9 (6.3-8.2) g/dL Albumin 4.4 (3.5-5.0) g/dL 11/26/21 11/26/21 Range/Units 01:02 01:02 WBC (3.8-10.6) k/uL RBC (4.30-5.90) m/uL Hgb (13.0-17.5) gm/dL Hct (39.0-53.0) % MCV (80.0-100.0) fL MCH (25.0-35.0) pg MCHC (31.0-37.0) g/dL RDW (11.5-15.5) % Plt Count (150-450) k/uL MPV Neutrophils % % Lymphocytes % % Monocytes % % Eosinophils % % Basophils % % Neutrophils # (1.3-7.7) k/uL Lymphocytes # (1.0-4.8) k/uL Monocytes # (0-1.0) k/uL Eosinophils # (0-0.7) k/uL Basophils # (0-0.2) k/uL PT (9.0-12.0) sec INR (<1.2) APTT (22.0-30.0) sec D-Dimer (<0.60) mg/L FEU Sodium (137-145) mmol/L Potassium (3.5-5.1) mmol/L Chloride (98-107) mmol/L Carbon Dioxide (22-30) mmol/L Anion Gap mmol/L BUN (9-20) mg/dL Creatinine (0.66-1.25) mg/dL Est GFR (CKD-EPI)AfAm (>60 ml/min/1.73 sqM) Est GFR (CKD-EPI)NonAf (>60 ml/min/1.73 sqM) Glucose (74-99) mg/dL Calcium (8.4-10.2) mg/dL Magnesium (1.6-2.3) mg/dL Total Bilirubin (0.2-1.3) mg/dL AST (17-59) U/L ALT (4-49) U/L Alkaline Phosphatase (38-126) U/L Troponin I <0.012 (0.000-0.034) ng/mL NT-Pro-B Natriuret Pep 178 pg/mL Total Protein (6.3-8.2) g/dL Albumin (3.5-5.0) g/dL - EKG Data -: EKG Interpreted by Me (EKG shows sinus tachycardia 109 AK 163 QRS 78 QTc 365) - Radiology Data Radiology results: report reviewed (Chest x-ray is improved from prior, pneumonia is improved), image reviewed Disposition Clinical Impression: Asthma exacerbation, Acute exacerbation of chronic obstructive pulmonary disease, Community acquired pneumonia, Fever Disposition: ADMITTED IP TO THIS [facility] Condition: Good Is patient prescribed a controlled substance at d/c from ED?: No Referrals: Diane Milton MD [Primary Care Provider] - 1-2 days
[2021-11-26] MEDS ORDERED: ACETAMINOPHEN TAB 500 MG TAB PO STA (01:01)
[2021-11-26] MEDS ORDERED: IBUPROFEN 800 MG TAB PO STA (01:01)
[2021-11-26 01:11] LABS: Basophils # (A) 0.1 k/uL (0-0.2); Basophils % (A) 1 %; Eosinophils # (A) 0.1 k/uL (0-0.7); Eosinophils % (A) 1 %; HCT 41.5 % (39.0-53.0); HGB 13.9 gm/dL (13.0-17.5); Lymphocytes # (A) 0.6 k/uL (1.0-4.8); Lymphocytes % (A) 7 %; MCH 31.1 pg (25.0-35.0); MCHC 33.6 g/dL (31.0-37.0); MCV 92.8 fL (80.0-100.0); Mean Platelet Volume 7.9; Monocytes # (A) 0.5 k/uL (0-1.0); Monocytes % (A) 6 %; Neutrophils # (A) 7.4 k/uL (1.3-7.7); Neutrophils % (A) 83 %; Platelet Count 171 k/uL (150-450); RBC 4.47 m/uL (4.30-5.90); RDW 14.7 % (11.5-15.5); WBC 8.9 k/uL (3.8-10.6)
[2021-11-26 01:19] LABS: ALT 25 U/L (4-49); AST 41 U/L (17-59); African American GFR (CKD) >90 (>60 ml/min/1.73 sqM); Albumin 4.4 g/dL (3.5-5.0); Alkaline Phosphatase 101 U/L (38-126); Anion Gap 11 mmol/L; Blood Urea Nitrogen 17 mg/dL (9-20); Calcium 9.2 mg/dL (8.4-10.2); Carbon Dioxide 24 mmol/L (22-30); Chloride 99 mmol/L (98-107); Glucose 101 mg/dL (74-99); Magnesium 1.8 mg/dL (1.6-2.3); Non-African American GFR(CKD) 83 (>60 ml/min/1.73 sqM); Potassium 4.5 mmol/L (3.5-5.1); Sodium 134 mmol/L (137-145); Total Bilirubin 1.2 mg/dL (0.2-1.3); Total Protein 7.9 g/dL (6.3-8.2)
[2021-11-26 01:24] LABS: Partial Thromboplastin Time 23.6 sec (22.0-30.0); Prothrombin Time 10.8 sec (9.0-12.0)
[2021-11-26] MEDS ORDERED: methylPREDNISolone SOD SUCCI 125 MG/2 ML VIAL IV STA (02:20)
[2021-11-26] MEDS ORDERED: SODIUM CHLORIDE 0.9% 1,000 ML IV SCH (02:30)
[2021-11-26] MEDS ORDERED: AZITHROMYCIN 500 MG in SODIUM CHLORIDE 0.9% 250 ML IVPB ONE ×2 (03:00→05:00)
[2021-11-26] MEDS ORDERED: methylPREDNISolone SOD SUCCI 125 MG/2 ML VIAL IV SCH (06:00)
[2021-11-26] MEDS ORDERED: FLUTICASONE 50MCG/SPRAY NASAL 16GM EA NOSTRIL PRN (06:42)
[2021-11-26 07:02] LABS: Basophils % (A) 0 %; Eosinophils % (A) 0 %; HCT 37.6 % (39.0-53.0); HGB 12.6 gm/dL (13.0-17.5); Lymphocytes # (A) 0.3 k/uL (1.0-4.8); Lymphocytes % (A) 5 %; MCH 32.4 pg (25.0-35.0); MCHC 33.6 g/dL (31.0-37.0); MCV 96.5 fL (80.0-100.0); Mean Platelet Volume 7.2; Monocytes # (A) 0.1 k/uL (0-1.0); Monocytes % (A) 1 %; Neutrophils # (A) 6.7 k/uL (1.3-7.7); Neutrophils % (A) 93 %; Platelet Count 170 k/uL (150-450); RBC 3.89 m/uL (4.30-5.90); RDW 15.5 % (11.5-15.5); WBC 7.2 k/uL (3.8-10.6)
[2021-11-26 07:31] LABS: Albumin 3.6 g/dL (3.5-5.0); Calcium 8.3 mg/dL (8.4-10.2); Total Bilirubin 0.8 mg/dL (0.2-1.3); Total Protein 6.7 g/dL (6.3-8.2)
[2021-11-26] MEDS ORDERED: ALBUTEROL NEBULIZED 2.5 MG/3 ML INHALATION SCH ×2 (08:00)
[2021-11-26] MEDS: ENOXAPARIN 40 MG/0.4 ML SYRINGE SQ SCH (09:37)
[2021-11-26] MEDS: LORATADINE 10 MG TAB PO SCH (09:38)
[2021-11-26] MEDS: OSELTAMIVIR 75 MG CAP PO SCH ×2 (09:38→20:02)
[2021-11-26] MEDS: PANTOPRAZOLE 40 MG TABLET PO SCH (09:38)
[2021-11-26] MEDS: guaiFENesin 600 MG TABLET.ER PO SCH ×2 (09:38→20:01)
[2021-11-26] MEDS: LEVOTHYROXINE 50 MCG TAB PO SCH (09:39)
--- NOTE | 2021-11-26 11:31 | P.CNPUL ---
History of Present Illness Consult date: 11/26/21 Requesting physician: Diane Milton Reason for consult: dyspnea Chief complaint: Shortness of breath, cough, congestion History of present illness: This is a very pleasant 76-year-old male patient with a known history of hyperlipidemia, hypertension, hypothyroidism, former smoker, daily alcohol use, moderate persistent chronic bronchial asthma and follows with Dr. Palencia in our office for the same. He is maintained on Advair, Singulair, albuterol. Yesterday he developed increasing shortness of breath cough congestion and chills and presented here to the emergency room last evening. Chest x-ray reveals no acute cardiopulmonary process. Some mild fibrotic changes at the lung bases. White count 7.2. Hemoglobin 12.6. Sodium 138. Potassium 4.0. Bicarb 21. Creatinine 0.97. Glucose 184. He did have a T-max of 101.8. He did test positive for influenza A. Coronavirus, RSV and influenza B not detected. He was initiated on ceftriaxone, azithromycin and Tamiflu. He is seen today in consultation on the regular medical floor. He is currently sitting up at the bedside. Awake and alert in no acute distress. Maintaining good O2 saturations in the mid to upper 90s on 2 L/m per nasal cannula. Currently afebrile. He does have a loose nonproductive cough. Review of Systems REVIEW OF SYSTEMS: CONSTITUTIONAL: Positive for fever, chills. Denies any recent significant weight loss or weight gain. EYES: Denies change in vision. EARS, NOSE, MOUTH, THROAT: Denies headaches, denies sore throat. CARDIOVASCULAR: Denies chest pain, palpitations or syncopal episodes. RESPIRATORY: Positive for shortness of breath, cough, congestion no hemoptysis. GASTROINTESTINAL: Denies change in appetite, denies abdominal pain GENITOURINARY: Denies hematuria, denies infections. MUSKULOSKELETAL: Denies pain, denies swelling. INTEGUMENTARY: Denies rash, denies eczema. NEUROLOGICAL: Denies recent memory loss, no recent seizure activity. PSYCHIATRIC: Denies anxiety, denies depression. HEMATOLOGIC/LYMPHATIC: Denies anemia, denies enlarged lymph nodes. s Past Medical History Past Medical History: Asthma, COPD, Hyperlipidemia, Hypertension, Thyroid Disorder Additional Past Medical History / Comment(s): Pt says he doese not think he has COPD but has been diagnosed with it. History of Any Multi-Drug Resistant Organisms: None Reported Past Surgical History: Appendectomy, Back Surgery Past Anesthesia/Blood Transfusion Reactions: No Reported Reaction Past Psychological History: No Psychological Hx Reported Smoking Status: Former smoker Past Alcohol Use History: Daily Additional Past Alcohol Use History / Comment(s): smoked less than 1ppd from [id number] Past Drug Use History: None Reported Additional Drug Use History / Comment(s): topical CBD occasional Medications and Allergies Home Medications Medication Instructions Recorded Confirmed Type Atorvastatin [Lipitor] 20 mg PO HS 10/21/19 11/26/21 History Levothyroxine Sodium [Synthroid] 50 mcg PO AC-BRKFST 10/21/19 11/26/21 History Losartan Potassium 100 mg PO HS 10/21/19 11/26/21 History Montelukast [Singulair] 10 mg PO HS 10/21/19 11/26/21 History Fluticasone/Salmeterol [Advair Hfa 2 puff INHALATION RT-BID 11/09/20 11/26/21 History 230-21 Mcg Inhaler] Loratadine 10 mg PO DAILY 11/09/20 11/26/21 History Ascorbic Acid [Vitamin C] 1,000 mg PO HS 11/26/21 11/26/21 History Aspirin EC [Ecotrin Low Dose] 81 mg PO HS 11/26/21 11/26/21 History Calcium Carbonate [Calcium] 1,200 mg PO HS 11/26/21 11/26/21 History Cholecalciferol (Vitamin D3) 125 mcg PO HS 11/26/21 11/26/21 History [Vitamin D3 (125 MCG = 5,000 IU)] Cyanocobalamin [Vitamin B-12] 500 mcg PO HS 11/26/21 11/26/21 History Echinacea 400 mg PO HS 11/26/21 11/26/21 History Ferrous Sulfate [Feosol] 325 mg PO HS 11/26/21 11/26/21 History Garlic 1,000 mg PO HS 11/26/21 11/26/21 History Glucosamine Sulfate 1,000 mg PO HS 11/26/21 11/26/21 History Lutein 20 mg PO HS 11/26/21 11/26/21 History Magnesium Oxide [Jean] 500 mg PO HS 11/26/21 11/26/21 History Msm 1000mg 1,000 mg PO HS 11/26/21 11/26/21 History [place]-3 Fatty Acids/Fish Oil [Fish 1 cap PO HS 11/26/21 11/26/21 History Oil 1,000 mg Softgel] Potassium Gluconate [Potassium 99 mg PO HS 11/26/21 11/26/21 History Gluconate ER] Turmeric 800mg 800 mg PO HS 11/26/21 11/26/21 History Ubidecarenone [Co Q-10] 100 mg PO HS 11/26/21 11/26/21 History Vitamin B Complex 1 cap PO HS 11/26/21 11/26/21 History Vitamin D3 400iu/Vitamin A 1500mcg 1 cap PO HS 11/26/21 11/26/21 History Vitamin E 200 unit PO HS 11/26/21 11/26/21 History Zinc 50 mg PO HS 11/26/21 11/26/21 History Allergies Allergy/AdvReac Type Severity Reaction Status Date / Time ipratropium Allergy Unknown Verified 11/26/21 07:21 Physical Exam Vitals: Vital Signs Temp Pulse Pulse Resp BP BP Pulse Ox 11/26/21 08:00 97.7 F 82 134/76 98 11/26/21 03:53 99.2 F 97 22 167/78 94 L 11/26/21 03:25 100 F H 90 20 125/77 95 11/26/21 02:29 100.9 F H 103 H 24 141/79 92 L 11/26/21 01:31 103 H 11/26/21 01:20 100 11/26/21 01:12 101.8 F H 102 H 22 163/96 94 L 11/25/21 23:16 99.4 F 115 H 24 179/84 96 Intake and Output 11/25/21 11/26/21 11/26/21 22:59 06:59 14:59 Intake Total 250 Balance 250 Intake: Intake, IV Titration 250 Amount Azithromycin 500 mg In 250 Sodium Chloride 0.9% 250 ml @ 250 mls/hr IVPB ONCE ONE Rx#:[id number] Other: Weight 92.986 kg GENERAL EXAM: Alert, very pleasant 76-year-old gentleman, on 2 L nasal cannula, comfortable in no apparent distress. HEAD: Normocephalic. EYES: Normal reaction of pupils, equal size. NOSE: Clear with pink turbinates. THROAT: No erythema or exudates. NECK: No masses, no JVD. CHEST: No chest wall deformity. LUNGS: Equal air entry with bilateral scattered rhonchi. CVS: S1 and S2 normal with no audible murmur, regular rhythm. ABDOMEN: No hepatosplenomegaly, normal bowel sounds, no guarding or rigidity. SPINE: No scoliosis or deformity SKIN: No rashes CENTRAL NERVOUS SYSTEM: No focal deficits, tone is normal in all 4 extremities. EXTREMITIES: There is no peripheral edema. No clubbing, no cyanosis. Martha pheral pulses are intact. Results - Laboratory Findings CBC and BMP: 11/26/21 06:01 11/26/21 06:01 PT/INR, D-dimer PT 10.8 sec (9.0-12.0) 11/26/21 01:02 INR 1.0 (<1.2) 11/26/21 01:02 D-Dimer 0.42 mg/L FEU (<0.60) 11/26/21 01:02 Abnormal lab findings: Abnormal Labs 11/26/21 11/26/21 11/26/21 01:02 01:02 02:30 RBC Hgb Hct Lymphocytes # 0.6 L Sodium 134 L Carbon Dioxide Glucose 101 H Calcium Influenza Type A (PCR) Detected A 11/26/21 11/26/21 06:01 06:01 RBC 3.89 L Hgb 12.6 L Hct 37.6 L Lymphocytes # 0.3 L Sodium Carbon Dioxide 21 L Glucose 184 H Calcium 8.3 L Influenza Type A (PCR) - Diagnostic Findings Chest x-ray: image reviewed Assessment and Plan Assessment: 1 Acute hypoxemic respiratory failure secondary to acute influenza A infection, complicated by tracheobronchitis 2 Acute exacerbation of of moderate persistent chronic bronchial asthma, second yves to above 3 Hypertension 4 Hyperlipidemia. 5 Hypothyroidism Plan: The patient was seen and evaluated Chest x-ray and labs reviewed Continue Tamiflu Continue empiric antibiotics Continue bronchodilators and IV Solu-Medrol Lovenox for DVT prophylaxis We will continue to follow and make further recommendations based on his clinical status I have personally seen and examined the patient, performed the documentation and the assessment and plan as written. Number of minutes spent on the visit: 20. Time with Patient: Greater than 30
[2021-11-26] MEDS: IPRATROPIUM-ALBUTEROL 3 ML NEB INHALATION SCH ×3 (12:26→19:46)
--- NOTE | 2021-11-26 14:36 | P.HPIM ---
History of Present Illness H&P Date: 11/26/21 HISTORY OF PRESENT ILLNESS This is a 76-year-old male patient of Dr. Milton and Dr. Palencia with past medical history of moderate persistent asthma, hypertension, hyperlipidemia, hypothyroidism, remote history of tobacco use and dependence, daily alcohol use. Patient gives history of developing increasing shortness of breath, cough, chills. Patient presented to [facility] emergency [facility]. He was febrile with a temperature of 101.8, heart rate 102, blood pressure 163/96, pulse ox 94% on room air. CBC was unremarkable. INR 1.0, d-dimer 0.42. Sodium 134 otherwise electrolytes and renal function normal. Troponin negative. Liver function tests negative. Influenza A detected. Influenza B not detected, RSV not detected, Covid 19 not detected. Chest x-ray revealed no active cardiopulmonary disease. Mild fibrotic changes at the lung bases. There is clearing of the infiltrate right lower lobe to a large extent compared to old exam. [facility] and consult with pulmonary medicine, IV Solu-Medrol, DuoNeb treatments, azithromycin, ceftriaxone and Tamiflu. REVIEW OF SYSTEMS Constitutional: Reports fever, no chills, no night sweats. No weight change. No weakness, fatigue or lethargy. No daytime sleepiness. EENT: No headache. No blurred vision or double vision, no loss of vision. No loss of Hearing, no ringing in the ears, no dizziness. No nasal drainage or congestion. No epistaxis. No sore throat. Lungs: Reports shortness of breath, reports cough, reports acute on chronic sputum production. Reports wheezing. Cardiovascular: No chest pain, no lower extremity edema. No palpitations. No paroxysmal nocturnal dyspnea. No orthopnea. No lightheadedness or dizziness. No syncopal episodes. Abdominal: No abdominal pain. No nausea, vomiting. No diarrhea. No constipati on. No bloody or tarry stools.. No loss of appetite. Genitourinary: No dysuria, increased frequency, urgency. No urinary retention. Musculoskeletal: No myalgias. No muscle weakness, no gait dysfunction, no frequent falls. No back pain. No neck pain. Integumentary: No wounds, no lesions. No rash or pruritus. No unusual bruising. No change in hair or nails. Neurologic: No aphasia. No facial droop. No change in mentation. No head injury. No headache. No paralysis. No paresthesia. Psychiatric: No depression. No anxiety. Endocrine: No abnormal blood sugars. No weight change. MEDICAL HISTORY Moderate persistent asthma Hypertension Hyperlipidemia Hypothyroidism SURGICAL HISTORY Appendectomy Back surgery SOCIAL HISTORY Patient states he smoked only for 3 years in the 1960s. He drinks beer 5-6 every day and has been doing this for many years. He is retired from [employer] 18 years ago and states he had minimal exposure to toxins there. FAMILY HISTORY Mother at age 88 from a stroke. Father at age 87 from a stroke which occurred after AAA surgery. Patient one sister that from lymphoma at age 50. He does not have any brothers. PHYSICAL EXAMINATION Gen: This is a 76-year-old male. He is resting better. To be comf ortable and in no acute distress. HEENT: Head is atraumatic, normocephalic. Pupils equal, round. Sclerae is anicteric. NECK: Supple. No JVD. No lymphadenopathy. No thyromegaly. LUNGS: Rhonchi more so on the right. No intercostal retractions. Accessory muscle usage. HEART: Regular rate and rhythm. No murmur. ABDOMEN: Soft. Bowel sounds are present. No masses. No tenderness. EXTREMITIES: No pedal edema. No calf tenderness. Dorsalis pedis palpable bilaterally. NEUROLOGICAL: Patient is awake, alert and oriented x3. Cranial nerves 2 through 12 are grossly intact. ASSESSMENT AND PLAN 1. Dyspnea secondary to acute influenza a and exacerbation of moderate intermit tent asthma and COPD exacerbation. Patient admitted to the [facility] floor. Consult with pulmonary medicine. Continue albuterol 4 times daily, Symbicort 2 puffs twice daily, Rocephin and a azithromycin daily, Solu-Medrol decreased to 40 mg every 8 hours, Singulair 10 mg at bedtime, Tamiflu 75 mg oral twice daily. 2. Hypertension. Continue losartan 100 mg at bedtime. 3. Hyperlipidemia. Continue atorvastatin 20 mg at bedtime. 4. Hypothyroidism. Continue levothyroxine 50 g daily. 5. Remote history of tobacco use and dependence. 6. Daily alcohol abuse. Monitor for DTs. 7. GI prophylaxis. Protonix daily. 8. DVT prophylaxis. Lovenox subcu. Patient will be admitted to the hospital for a minimum of 2 night stay. DISCHARGE PLAN home. Impression and plan of care have been directed as dictated by the signing physician. Bethany Bradshaw nurse practitioner acting as scribe for signing physician. Past Medical History Past Medical History: Asthma, COPD, Hyperlipidemia, Hypertension, Thyroid Disorder Additional Past Medical History / Comment(s): Pt says he doese not think he has COPD but has been diagnosed with it. History of Any Multi-Drug Resistant Organisms: None Reported Past Surgical History: Appendectomy, Back Surgery Past Anesthesia/Blood Transfusion Reactions: No Reported Reaction Past Psychological History: No Psychological Hx Reported Smoking Status: Former smoker Past Alcohol Use History: Daily Additional Past Alcohol Use History / Comment(s): smoked less than 1ppd from [id number] Past Drug Use History: None Reported Additional Drug Use History / Comment(s): topical CBD occasional Medications and Allergies Home Medications Medication Instructions Recorded Confirmed Type Atorvastatin [Lipitor] 20 mg PO HS 10/21/19 11/26/21 History Levothyroxine Sodium [Synthroid] 50 mcg PO AC-BRKFST 10/21/19 11/26/21 History Losartan Potassium 100 mg PO HS 10/21/19 11/26/21 History Montelukast [Singulair] 10 mg PO HS 10/21/19 11/26/21 History Fluticasone/Salmeterol [Advair Hfa 2 puff INHALATION RT-BID 11/09/20 11/26/21 History 230-21 Mcg Inhaler] Loratadine 10 mg PO DAILY 11/09/20 11/26/21 History Ascorbic Acid [Vitamin C] 1,000 mg PO HS 11/26/21 11/26/21 History Aspirin EC [Ecotrin Low Dose] 81 mg PO HS 11/26/21 11/26/21 History Calcium Carbonate [Calcium] 1,200 mg PO HS 11/26/21 11/26/21 History Cholecalciferol (Vitamin D3) 125 mcg PO HS 11/26/21 11/26/21 History [Vitamin D3 (125 MCG = 5,000 IU)] Cyanocobalamin [Vitamin B-12] 500 mcg PO HS 11/26/21 11/26/21 History Echinacea 400 mg PO HS 11/26/21 11/26/21 History Ferrous Sulfate [Feosol] 325 mg PO HS 11/26/21 11/26/21 History Garlic 1,000 mg PO HS 11/26/21 11/26/21 History Glucosamine Sulfate 1,000 mg PO HS 11/26/21 11/26/21 History Lutein 20 mg PO HS 11/26/21 11/26/21 History Magnesium Oxide [Jean] 500 mg PO HS 11/26/21 11/26/21 History Msm 1000mg 1,000 mg PO HS 11/26/21 11/26/21 History [place]-3 Fatty Acids/Fish Oil [Fish 1 cap PO HS 11/26/21 11/26/21 History Oil 1,000 mg Softgel] Potassium Gluconate [Potassium 99 mg PO HS 11/26/21 11/26/21 History Gluconate ER] Turmeric 800mg 800 mg PO HS 11/26/21 11/26/21 History Ubidecarenone [Co Q-10] 100 mg PO 11/26/21 11/26/21 History Vitamin B Complex 1 cap PO 11/26/21 11/26/21 History Vitamin D3 400iu/Vitamin A 1500mcg 1 cap PO 11/26/21 11/26/21 History Vitamin E 200 unit PO 11/26/21 11/26/21 History Zinc 50 mg PO 11/26/21 11/26/21 History Allergies Allergy/AdvReac Type Severity Reaction Status Date / Time ipratropium Allergy Unknown Verified 11/26/21 07:21 Physical Exam Vitals: Vital Signs Temp Pulse Pulse Resp BP BP Pulse Ox 11/26/21 08:00 97.7 F 82 134/76 98 11/26/21 03:53 99.2 F 97 22 167/78 94 L 11/26/21 03:25 100 F H 90 20 125/77 95 11/26/21 02:29 100.9 F H 103 H 24 141/79 92 L 11/26/21 01:31 103 H 11/26/21 01:20 100 11/26/21 01:12 101.8 F H 102 H 22 163/96 94 L 11/25/21 23:16 99.4 F 115 H 24 179/84 96 Intake and Output 11/25/21 11/26/21 11/26/21 22:59 06:59 14:59 Intake Total 250 Balance 250 Intake: Intake, IV Titration 250 Amount Azithromycin 500 mg In 250 Sodium Chloride 0.9% 250 ml @ 250 mls/hr IVPB ONCE ONE Rx#:[id number] Other: Weight 92.986 kg Results CBC & Chem 7: 11/26/21 06:01 11/26/21 06:01 Labs: Abnormal Lab Results - Last 24 Hours (Table) 11/26/21 11/26/21 11/26/21 Range/Units 01:02 01:02 02:30 RBC (4.30-5.90) m/uL Hgb (13.0-17.5) gm/dL Hct (39.0-53.0) % Lymphocytes # 0.6 L (1.0-4.8) k/uL Sodium 134 L (137-145) mmol/L Carbon Dioxide (22-30) mmol/L Glucose 101 H (74-99) mg/dL Calcium (8.4-10.2) mg/dL Influenza Type A (PCR) Detected A (Not Detectd) 11/26/21 11/26/21 Range/Units 06:01 06:01 RBC 3.89 L (4.30-5.90) m/uL Hgb 12.6 L (13.0-17.5) gm/dL Hct 37.6 L (39.0-53.0) % Lymphocytes # 0.3 L (1.0-4.8) k/uL Sodium (137-145) mmol/L Carbon Dioxide 21 L (22-30) mmol/L Glucose 184 H (74-99) mg/dL Calcium 8.3 L (8.4-10.2) mg/dL Influenza Type A (PCR) (Not Detectd) Thrombosis Risk Factor Assmnt - Choose All That Apply Any of the Below Risk Factors Present?: Yes Each Factor Represents 1 point: Abnormal pulmonary function (COPD), Obesity (BMI >25) Each Risk Factor Represents 3 Points: Age 75 years or older Thrombosis Risk Factor Assessment Total Risk Factor Score: 5 Thrombosis Risk Factor Assessment Level: High Risk
[2021-11-26] MEDS: methylPREDNISolone SOD SUCCI 40 MG/ML 1 ML VIAL IV SCH (15:39)
[2021-11-26] MEDS: SYMBICORT 160-4.5 MCG INHALER INHALATION SCH (19:48)
[2021-11-26] MEDS: CALCIUM CARBONATE 500 MG CHEWABLE PO SCH (20:00)
[2021-11-26] MEDS: ASPIRIN 81 MG PO SCH (20:00)
[2021-11-26] MEDS: ATORVASTATIN 20 MG TAB PO SCH (20:00)
[2021-11-26] MEDS: ASCORBIC ACID 500 MG TAB PO SCH (20:00)
[2021-11-26] MEDS: CHOLECALCIFEROL 125 MCG (5000 IU) TABLET PO SCH (20:01)
[2021-11-26] MEDS: FERROUS SULFATE 325 MG TAB PO SCH (20:01)
[2021-11-26] MEDS: MAGNESIUM OXIDE 400 MG TAB PO SCH (20:01)
[2021-11-26] MEDS: MONTELUKAST 10 MG TAB PO SCH (20:01)
[2021-11-26] MEDS: CYANOCOBALAMIN 500 MCG TAB PO SCH (20:01)
[2021-11-26] MEDS: LOSARTAN 50 MG TAB PO SCH (20:01)
[2021-11-26] MEDS: ZINC SULFATE 220 MG CAP PO SCH (20:02)
[2021-11-27] MEDS: methylPREDNISolone SOD SUCCI 40 MG/ML 1 ML VIAL IV SCH ×3 (00:12→16:02)
[2021-11-27] MEDS: AZITHROMYCIN 500 MG in SODIUM CHLORIDE 0.9% 250 ML IVPB SCH (05:35)
[2021-11-27] MEDS: LEVOTHYROXINE 50 MCG TAB PO SCH (06:18)
[2021-11-27] MEDS: SYMBICORT 160-4.5 MCG INHALER INHALATION SCH ×2 (09:09→20:48)
[2021-11-27] MEDS: IPRATROPIUM-ALBUTEROL 3 ML NEB INHALATION SCH ×3 (09:09→12:02)
[2021-11-27] MEDS: ENOXAPARIN 40 MG/0.4 ML SYRINGE SQ SCH (10:35)
[2021-11-27] MEDS: PANTOPRAZOLE 40 MG TABLET PO SCH (10:35)
[2021-11-27] MEDS: guaiFENesin 600 MG TABLET.ER PO SCH ×2 (10:37→21:18)
[2021-11-27] MEDS: LORATADINE 10 MG TAB PO SCH (10:37)
[2021-11-27] MEDS: OSELTAMIVIR 75 MG CAP PO SCH ×2 (10:38→21:19)
--- NOTE | 2021-11-27 10:57 | P.PN ---
Subjective Progress Note Date: 11/27/21 This is a very pleasant 76-year-old male patient with a known history of hyperlipidemia, hypertension, hypothyroidism, former smoker, daily alcohol use, moderate persistent chronic bronchial asthma and follows with Dr. Palencia in our office for the same. He is maintained on Advair, Singulair, albuterol. Y esterday he developed increasing shortness of breath cough congestion and chills and presented here to the emergency room last evening. Chest x-ray reveals no acute cardiopulmonary process. Some mild fibrotic changes at the lung bases. White count 7.2. Hemoglobin 12.6. Sodium 138. Potassium 4.0. Bicarb 21. Creatinine 0.97. Glucose 184. He did have a T-max of 101.8. He did test positive for influenza A. Coronavirus, RSV and influenza B not detected. He was initiated on ceftriaxone, azithromycin and Tamiflu. He is seen today in consultation on the regular medical floor. He is currently sitting up at the bedside. Awake and alert in no acute distress. Maintaining good O2 saturations in the mid to upper 90s on 2 L/m per nasal cannula. Currently afebrile. He does have a loose nonproductive cough. The patient is seen today 11/27/2021 in follow-up in the regular medical floor. He is currently sitting up in the bedside. Awake and alert in no acute distress. Still with a loose nonproductive cough. Still dyspneic with conversation. Though improved today compared to yesterday. He is on 2 L nasal cannula maintaining O2 saturations in the 90s. He remains on antibiotics in the form of cefepime and azithromycin. He remains on Tamiflu. He is continued on bronchodilators and IV Solu-Medrol. Lovenox for DVT prophylaxis. Blood cultures revealed no growth. Objective - Vital Signs Vital signs: Vital Signs Temp 97.7 F 11/27/21 08:00 Pulse 77 11/27/21 08:00 Resp 20 11/27/21 08:00 BP 148/78 11/27/21 08:00 Pulse Ox 98 11/27/21 08:00 Intake & Output 11/26/21 11/27/21 11/27/21 18:59 06:59 18:59 Intake Total 300 350 Balance 300 350 Intake: Intake, IV Titration 300 350 Amount Azithromycin 500 mg In 250 Sodium Chloride 0.9% 250 ml @ 250 mls/hr IVPB ONCE ONE Rx#:[id number] Azithromycin 500 mg In 250 Sodium Chloride 0.9% 250 ml @ 250 mls/hr IVPB Q24H [facility] Rx#:[id number] cefTRIAXone 1 gm In 50 100 Sodium Chloride 0.9% 50 ml @ 100 mls/hr IVPB Q12H [facility] Rx#:[id number] Other: # Voids 2 - Exam GENERAL EXAM: Alert, very pleasant 76-year-old gentleman, on 2 L nasal cannula, comfortable in no apparent distress. HEAD: Normocephalic. EYES: Normal reaction of pupils, equal size. NOSE: Clear with pink turbinates. THROAT: No erythema or exudates. NECK: No masses, no JVD. CHEST: No chest wall deformity. LUNGS: Equal air entry with bilateral scattered rhonchi. CVS: S1 and S2 normal with no audible murmur, regular rhythm. ABDOMEN: No hepatosplenomegaly, normal bowel sounds, no guarding or rigidity. SPINE: No scoliosis or deformity SKIN: No rashes CENTRAL NERVOUS SYSTEM: No focal deficits, tone is normal in all 4 extremities. EXTREMITIES: There is no peripheral edema. No clubbing, no cyanosis. Peripheral pulses are intact. - Labs CBC & Chem 7: 11/26/21 06:01 11/26/21 06:01 Labs: Microbiology - Last 24 Hours (Table) 11/26/21 03:02 Blood Culture - Preliminary Blood No Growth after 24 hours 11/26/21 02:55 Blood Culture - Preliminary Blood No Growth after 24 hours Assessment and Plan Assessment: 1 Acute hypoxemic respiratory failure secondary to acute influenza A infection, complicated by tracheobronchitis 2 Acute exacerbation of of moderate persistent chronic bronchial asthma, secondary to above 3 Hypertension 4 Hyperlipidemia. 5 Hypothyroidism Plan: The patient was seen and evaluated Stable and on 2 L nasal cannula Continue Tamiflu Continue empiric antibiotics Continue bronchodilators and IV Solu-Medrol Lovenox for DVT prophylaxis Titrate down the FiO2 as tolerated Increase his activity as tolerated We will continue to follow I have personally seen and examined the patient, performed the documentation and the assessment and plan as written. Number of minutes spent on the visit: 10.
--- NOTE | 2021-11-27 14:03 | P.PN ---
Subjective Progress Note Date: 11/27/21 HISTORY OF PRESENT ILLNESS This is a 76-year-old male patient of Dr. Milton and Dr. Palencia with past medical history of moderate persistent asthma, hypertension, hyperlipidemia, hypot hyroidism, remote history of tobacco use and dependence, daily alcohol use. Patient gives history of developing increasing shortness of breath, cough, chills. Patient presented to [facility] emergency center. He was febrile with a temperature of 101.8, heart rate 102, blood pressure 163/96, pulse ox 94% on room air. CBC was unremarkable. INR 1.0, d-dimer 0.42. Sodium 134 otherwise electrolytes and renal function normal. Troponin negative. Liver function tests negative. Influenza A detected. Influenza B not detected, RSV not detected, Covid 19 not detected. Chest x-ray revealed no active cardiopulmonary disease. Mild fibrotic changes at the lung bases. There is clearing of the infiltrate right lower lobe to a large extent compared to old exam. Patient was admitted to the Medr floor and consult with pulmonary medicine, IV Solu-Medrol, DuoNeb treatments, azithromycin, ceftriaxone and Tamiflu. 11/27: Patient states he is feeling much better from yesterday. He had a coughing episode last evening about quite a bit of sputum, having less sputum today. He states his appetite is improved. He has been afebrile for greater than 24 hours. Heart rate in the 70s, blood pressure 148/78, pulse ox 98% on 2 L nasal cannula. Patient is concerned that he was on Atrovent which he has an ALLERGY to. Patient did receive 3 doses and did not have any adverse reaction. We will change this over to just albuterol per his request. He is continued on IV Solu-Medrol at 40 mg every 8 hours, Tamiflu, Symbicort and albuterol nebulizer. Anticipate possible discharge in the next 24-48 hours. Patient is followed closely by pulmonary medicine. REVIEW OF SYSTEMS Constitutional: Reports fever, no chills, no night sweats. No weight change. No weakness, fatigue or lethargy. No daytime sleepiness. EENT: No headache. No blurred vision or double vision, no loss of vision. No loss of Hearing, no ringing in the ears, no dizziness. No nasal drainage or congestion. No epistaxis. No sore throat. Lungs: Reports shortness of breath-improved, reports cough-less frequent, reports acute on chronic sputum production. Reports chronic wheezing. Cardiovascular: No chest pain, no lower extremity edema. No palpitations. No paroxysmal nocturnal dyspnea. No orthopnea. No lightheadedness or dizziness. No syncopal episodes. Abdominal: No abdominal pain. No nausea, vomiting. No diarrhea. No constipation. No bloody or tarry stools.. No loss of appetite. Genitourinary: No dysuria, increased frequency, urgency. No urinary retention. Musculoskeletal: No myalgias. No muscle weakness, no gait dysfunction, no frequent falls. No back pain. No neck pain. Integumentary: No wounds, no lesions. No rash or pruritus. No unusual bruisi ng. No change in hair or nails. Neurologic: No aphasia. No facial droop. No change in mentation. No head injury. No headache. No paralysis. No paresthesia. Psychiatric: No depression. No anxiety. Endocrine: No abnormal blood sugars. No weight change. PHYSICAL EXAMINATION Gen: This is a 76-year-old male. He is comfortable and in no acute distress. HEENT: Head is atraumatic, normocephalic. Pupils equal, round. Sclerae is anicteric. NECK: Supple. No JVD. No lymphadenopathy. No thyromegaly. LUNGS: Rhonchi more so on the right. No intercostal retractions. No accessory muscle usage. HEART: Regular rate and rhythm. No murmur. ABDOMEN: Soft. Bowel sounds are present. No masses. No tenderness. EXTREMITIES: No pedal edema. No calf tenderness. Dorsalis pedis palpable bilaterally. NEUROLOGICAL: Patient is awake, alert and oriented x3. Cranial nerves 2 through 12 are grossly intact. ASSESSMENT AND PLAN 1. Dyspnea secondary to acute influenza a and exacerbation of moderate intermittent asthma and COPD exacerbation. Patient admitted to the MedSur floor. Consult with pulmonary medicine. Continue albuterol 4 times daily, Symbicort 2 puffs twice daily, Rocephin and a azithromycin daily, Solu-Medrol decreased to 40 mg every 8 hours, Singulair 10 mg at bedtime, continue Tamiflu 75 mg oral twice daily. 2. Hypertension. Continue losartan 100 mg at bedtime. 3. Hyperlipidemia. Continue atorvastatin 20 mg at bedtime. 4. Hypothyroidism. Continue levothyroxine 50 g daily. 5. Remote history of tobacco use and dependence. 6. Daily alcohol abuse. Monitor for DTs. 7. GI prophylaxis. Protonix daily. 8. DVT prophylaxis. Lovenox subcu. DISCHARGE PLAN home in 24-48 hours. Impression and plan of care have been directed as dictated by the signing physician. eBthany Bradshaw nurse practitioner acting as scribe for signing physician. Objective - Vital Signs Vital signs: Vital Signs Temp 97.7 F 11/27/21 08:00 Pulse 77 11/27/21 08:00 Resp 20 11/27/21 08:00 BP 148/78 11/27/21 08:00 Pulse Ox 98 11/27/21 08:00 Intake & Output 11/26/21 11/27/21 11/27/21 18:59 06:59 18:59 Intake Total 300 350 Balance 300 350 Intake: Intake, IV Titration 300 350 Amount Azithromycin 500 mg In 250 Sodium Chloride 0.9% 250 ml @ 250 mls/hr IVPB ONCE ONE Rx#:[id number] Azithromycin 500 mg In 250 Sodium Chloride 0.9% 250 ml @ 250 mls/hr IVPB Q24H [facility] Rx#:[id number] cefTRIAXone 1 gm In 50 100 Sodium Chloride 0.9% 50 ml @ 100 mls/hr IVPB Q12H [facility] Rx#:[id number] Other: # Voids 2 - Labs CBC & Chem 7: 11/26/21 06:01 11/26/21 06:01 Labs: Microbiology - Last 24 Hours (Table) 11/26/21 03:02 Blood Culture - Preliminary Blood No Growth after 24 hours 11/26/21 02:55 Blood Culture - Preliminary Blood No Growth after 24 hours
[2021-11-27] MEDS: BENZOCAINE/MENTHOL LOZENG 1 EACH LOZENGE MUCOUS MEM PRN (18:24)
[2021-11-27] MEDS: ALBUTEROL NEBULIZED 2.5 MG/3 ML INHALATION SCH (20:48)
[2021-11-27] MEDS: ZINC SULFATE 220 MG CAP PO SCH (21:18)
[2021-11-27] MEDS: ASCORBIC ACID 500 MG TAB PO SCH (21:19)
[2021-11-27] MEDS: ASPIRIN 81 MG PO SCH (21:19)
[2021-11-27] MEDS: FERROUS SULFATE 325 MG TAB PO SCH (21:19)
[2021-11-27] MEDS: CALCIUM CARBONATE 500 MG CHEWABLE PO SCH (21:19)
[2021-11-27] MEDS: CYANOCOBALAMIN 500 MCG TAB PO SCH (21:19)
[2021-11-27] MEDS: MONTELUKAST 10 MG TAB PO SCH (21:19)
[2021-11-27] MEDS: CHOLECALCIFEROL 125 MCG (5000 IU) TABLET PO SCH (21:19)
[2021-11-27] MEDS: MAGNESIUM OXIDE 400 MG TAB PO SCH (21:19)
[2021-11-27] MEDS: ATORVASTATIN 20 MG TAB PO SCH (21:19)
[2021-11-27] MEDS: LOSARTAN 50 MG TAB PO SCH (21:19)
[2021-11-28] MEDS: methylPREDNISolone SOD SUCCI 40 MG/ML 1 ML VIAL IV SCH ×3 (00:39→16:35)
[2021-11-28] MEDS: AZITHROMYCIN 500 MG in SODIUM CHLORIDE 0.9% 250 ML IVPB SCH (05:54)
[2021-11-28] MEDS: LEVOTHYROXINE 50 MCG TAB PO SCH (05:55)
[2021-11-28] MEDS: SYMBICORT 160-4.5 MCG INHALER INHALATION SCH ×2 (09:44→20:40)
[2021-11-28] MEDS: ALBUTEROL NEBULIZED 2.5 MG/3 ML INHALATION SCH ×3 (09:44→20:39)
--- NOTE | 2021-11-28 10:05 | XR ---
EXAMINATION TYPE: XR chest 1V portable DATE OF EXAM: 11/28/2021 COMPARISON: X-ray dated 11/26/2021 HISTORY: Asthma, fever TECHNIQUE: Single frontal view of the chest is obtained. FINDINGS: COPD changes, appreciated previously. Minimal right basal linear pulmonary atelectasis with questiona ble left basal tiny pulmonary atelectasis, not appreciated previously. Associated infection is less l ikely yet cannot be excluded, please correlate clinically. Grossly unremarkable remainder of the lungs. No sizable pleural effusion or definite pneumothorax. Un changed cardiomediastinal silhouette. Aortic atherosclerotic calcifications. Degenerative changes of the thoracic spine. IMPRESSION: COPD changes with bilateral basal pulmonary atelectasis as described above, please correlate clinical ly to rule out associated infection.
[2021-11-28] MEDS: PANTOPRAZOLE 40 MG TABLET PO SCH (10:16)
[2021-11-28] MEDS: OSELTAMIVIR 75 MG CAP PO SCH ×2 (10:16→21:38)
[2021-11-28] MEDS: ENOXAPARIN 40 MG/0.4 ML SYRINGE SQ SCH (10:16)
[2021-11-28] MEDS: LORATADINE 10 MG TAB PO SCH (10:16)
[2021-11-28] MEDS: guaiFENesin 600 MG TABLET.ER PO SCH ×2 (10:16→21:37)
--- NOTE | 2021-11-28 11:11 | P.PN ---
Subjective Progress Note Date: 11/28/21 This is a very pleasant 76-year-old male patient with a known history of hyperlipidemia, hypertension, hypothyroidism, former smoker, daily alcohol use, moderate persistent chronic bronchial asthma and follows with Dr. Palencia in our office for the same. He is maintained on Advair, Singulair, albuterol. Y esterday he developed increasing shortness of breath cough congestion and chills and presented here to the emergency room last evening. Chest x-ray reveals no acute cardiopulmonary process. Some mild fibrotic changes at the lung bases. White count 7.2. Hemoglobin 12.6. Sodium 138. Potassium 4.0. Bicarb 21. Creatinine 0.97. Glucose 184. He did have a T-max of 101.8. He did test positive for influenza A. Coronavirus, RSV and influenza B not detected. He was initiated on ceftriaxone, azithromycin and Tamiflu. He is seen today in consultation on the regular medical floor. He is currently sitting up at the bedside. Awake and alert in no acute distress. Maintaining good O2 saturations in the mid to upper 90s on 2 L/m per nasal cannula. Currently afebrile. He does have a loose nonproductive cough. The patient is seen today 11/27/2021 in follow-up in the regular medical floor. He is currently sitting up in the bedside. Awake and alert in no acute distress. Still with a loose nonproductive cough. Still dyspneic with conversation. Though improved today compared to yesterday. He is on 2 L nasal cannula maintaining O2 saturations in the 90s. He remains on antibiotics in the form of cefepime and azithromycin. He remains on Tamiflu. He is continued on bronchodilators and IV Solu-Medrol. Lovenox for DVT prophylaxis. Blood cultures revealed no growth. The patient is seen today 11/28/2021 in follow-up on the regular medical floor. He is currently sitting up in bed. Awake and alert in no acute distress. Breathing easier today compared to yesterday. He is maintaining O2 saturations in the 90s on 2 L/m per nasal cannula. Normal saline at KVO. He is continued on Symbicort, DuoNeb inhalations, IV Solu-Medrol. Continued on Tamiflu. Lovenox for DVT prophylaxis. Follow-up chest x-ray reveals evidence of COPD. Minimal right basilar linear atelectasis. Objective - Vital Signs Vital signs: Vital Signs Temp 97.7 F 11/28/21 08:00 Pulse 76 11/28/21 09:52 Resp 18 11/28/21 09:09 BP 138/66 11/28/21 08:00 Pulse Ox 97 11/28/21 09:46 Intake & Output 11/27/21 11/28/21 11/28/21 18:59 06:59 18:59 Output Total 0 Balance 0 Output: Urine 0 Other: Voiding Method Toilet Toilet # Voids 1 1 1 # Bowel Movements 1 - Exam GENERAL EXAM: Alert, very pleasant 76-year-old gentleman, on 2 L nasal cannula, comfortable in no apparent distress. HEAD: Normocephalic. EYES: Normal reaction of pupils, equal size. NOSE: Clear with pink turbinates. THROAT: No erythema or exudates. NECK: No masses, no JVD. CHEST: No chest wall deformity. LUNGS: Equal air entry with bilateral scattered rhonchi. CVS: S1 and S2 normal with no audible murmur, regular rhythm. ABDOMEN: No hepatosplenomegaly, normal bowel sounds, no guarding or rigidity. SPINE: No scoliosis or deformity SKIN: No rashes CENTRAL NERVOUS SYSTEM: No focal deficits, tone is normal in all 4 extremities. EXTREMITIES: There is no peripheral edema. No clubbing, no cyanosis. Peripheral pulses are intact. - Labs CBC & Chem 7: 11/26/21 06:01 11/26/21 06:01 Labs: Microbiology - Last 24 Hours (Table) 11/26/21 03:02 Blood Culture - Preliminary Blood No Growth after 48 hours 11/26/21 02:55 Blood Culture - Preliminary Blood No Growth after 48 hours Assessment and Plan Assessment: 1 Acute hypoxemic respiratory failure secondary to acute influenza A infection, complicated by tracheobronchitis 2 Acute exacerbation of of moderate persistent chronic bronchial asthma, secondary to above 3 Hypertension 4 Hyperlipidemia. 5 Hypothyroidism Plan: The patient was seen and evaluated Chest x-ray showing improvement Stable and on 2 L nasal cannula Continue Tamiflu Continue empiric antibiotics Continue bronchodilators and IV Solu-Medrol Lovenox for DVT prophylaxis Titrate down the FiO2 as tolerated Increase his activity as tolerated Probable discharge in the a.m. We will continue to follow I have personally seen and examined the patient, performed the documentation and the assessment and plan as written. Number of minutes spent on the visit: 10.
--- NOTE | 2021-11-28 14:30 | P.PN ---
Subjective Progress Note Date: 11/28/21 HISTORY OF PRESENT ILLNESS This is a 76-year-old male patient of Dr. Milton and Dr. Palencia with past medical history of moderate persistent asthma, hypertension, hyperlipidemia, hypot hyroidism, remote history of tobacco use and dependence, daily alcohol use. Patient gives history of developing increasing shortness of breath, cough, chills. Patient presented to [facility] emergency center. He was febrile with a temperature of 101.8, heart rate 102, blood pressure 163/96, pulse ox 94% on room air. CBC was unremarkable. INR 1.0, d-dimer 0.42. Sodium 134 otherwise electrolytes and renal function normal. Troponin negative. Liver function tests negative. Influenza A detected. Influenza B not detected, RSV not detected, Covid 19 not detected. Chest x-ray revealed no active cardiopulmonary disease. Mild fibrotic changes at the lung bases. There is clearing of the infiltrate right lower lobe to a large extent compared to old exam. Patient was admitted to the Med[facility] floor and consult with pulmonary medicine, IV Solu-Medrol, DuoNeb treatments, azithromycin, ceftriaxone and Tamiflu. 11/27: Patient states he is feeling much better from yesterday. He had a coughing episode last evening about quite a bit of sputum, having less sputum today. He states his appetite is improved. He has been afebrile for greater than 24 hours. Heart rate in the 70s, blood pressure 148/78, pulse ox 98% on 2 L nasal cannula. Patient is concerned that he was on Atrovent which he has an ALLERGY to. Patient did receive 3 doses and did not have any adverse reaction. We will change this over to just albuterol per his request. He is continued on IV Solu-Medrol at 40 mg every 8 hours, Tamiflu, Symbicort and albuterol nebulizer. Anticipate possible discharge in the next 24-48 hours. Patient is followed closely by pulmonary medicine. 11/28: Patient remains afebrile, heart rate 74, blood pressure 148/84, pulse ox 97% on 2 L nasal cannula. Blood cultures are showing no growth at 24 hours. Repeat chest x-ray reveals COPD changes with bilateral basal pulmonary atelectasis. Repeat blood work ordered for tomorrow. Pulmonary medicine is following closely, patient continues on IV Solu-Medrol, Tamiflu, albuterol nebulizer, Symbicort and antibiotics. REVIEW OF SYSTEMS Constitutional: Reports fever, no chills, no night sweats. No weight change. No weakness, fatigue or lethargy. No daytime sleepiness. EENT: No headache. No blurred vision or double vision, no loss of vision. No loss of Hearing, no ringing in the ears, no dizziness. No nasal drainage or congestion. No epistaxis. No sore throat. Lungs: Reports shortness of breath-improving, reports cough-less frequent, reports acute on chronic sputum production. Reports chronic wheezing. Cardiovascular: No chest pain, no lower extremity edema. No palpitations. No paroxysmal nocturnal dyspnea. No orthopnea. No lightheadedness or dizziness. No syncopal episodes. Abdominal: No abdominal pain. No nausea, vomiting. No diarrhea. No constipation. No bloody or tarry stools.. No loss of appetite. Genitourinary: No dysuria, increased frequency, urgency. No urinary retention. Musculoskeletal: No myalgias. No muscle weakness, no gait dysfunction, no parish quent falls. No back pain. No neck pain. Integumentary: No wounds, no lesions. No rash or pruritus. No unusual bruising. No change in hair or nails. Neurologic: No aphasia. No facial droop. No change in mentation. No head injury. No headache. No paralysis. No paresthesia. Psychiatric: No depression. No anxiety. Endocrine: No abnormal blood sugars. No weight change. PHYSICAL EXAMINATION Gen: This is a 76-year-old male. He is comfortable and in no acute distress. HEENT: Head is atraumatic, normocephalic. Pupils equal, round. Sclerae is anicteric. NECK: Supple. No JVD. No lymphadenopathy. No thyromegaly. LUNGS: Rhonchi more so on the right. No intercostal retractions. No accessory muscle usage. HEART: Regular rate and rhythm. No murmur. ABDOMEN: Soft. Bowel sounds are present. No masses. No tenderness. EXTREMITIES: No pedal edema. No calf tenderness. Dorsalis pedis palpable bilaterally. NEUROLOGICAL: Patient is awake, alert and oriented x3. Cranial nerves 2 through 12 are grossly intact. ASSESSMENT AND PLAN 1. Dyspnea secondary to acute influenza a and exacerbation of moderate intermittent asthma and COPD exacerbation. Consult with pulmonary medicine appreciated. Continue albuterol 4 times daily, Symbicort 2 puffs twice daily, Rocephin and a azithromycin daily, Solu-Medrol decreased to 40 mg every 8 hours, Singulair 10 mg at bedtime, continue Tamiflu 75 mg oral twice daily. 2. Hypertension. Continue losartan 100 mg at bedtime. 3. Hyperlipidemia. Continue atorvastatin 20 mg at bedtime. 4. Hypothyroidism. Continue levothyroxine 50 g daily. 5. Remote history of tobacco use and dependence. 6. Daily alcohol abuse. Monitor for DTs. 7. GI prophylaxis. Protonix daily. 8. DVT prophylaxis. Lovenox subcu. DISCHARGE PLAN Home on Impression and plan of care have been directed as dictated by the signing physician. Bethany Bradshaw nurse practitioner acting as scribe for signing physician. Objective - Vital Signs Vital signs: Vital Signs Temp 97.7 F 11/28/21 13:32 Pulse 74 11/28/21 13:32 Resp 20 11/28/21 13:32 BP 148/84 11/28/21 13:32 Pulse Ox 97 11/28/21 13:32 Intake & Output 11/27/21 11/28/21 11/28/21 18:59 06:59 18:59 Output Total 0 Balance 0 Output: Urine 0 Other: Voiding Method Toilet Toilet # Voids 1 1 1 # Bowel Movements 1 - Labs CBC & Chem 7: 11/26/21 06:01 11/26/21 06:01 Labs: Microbiology - Last 24 Hours (Table) 11/26/21 03:02 Blood Culture - Preliminary Blood No Growth after 48 hours 11/26/21 02:55 Blood Culture - Preliminary Blood No Growth after 48 hours
[2021-11-28] MEDS: ASCORBIC ACID 500 MG TAB PO SCH (21:37)
[2021-11-28] MEDS: ZINC SULFATE 220 MG CAP PO SCH (21:37)
[2021-11-28] MEDS: LOSARTAN 50 MG TAB PO SCH (21:37)
[2021-11-28] MEDS: MONTELUKAST 10 MG TAB PO SCH (21:37)
[2021-11-28] MEDS: ASPIRIN 81 MG PO SCH (21:37)
[2021-11-28] MEDS: MAGNESIUM OXIDE 400 MG TAB PO SCH (21:37)
[2021-11-28] MEDS: CYANOCOBALAMIN 500 MCG TAB PO SCH (21:38)
[2021-11-28] MEDS: CHOLECALCIFEROL 125 MCG (5000 IU) TABLET PO SCH (21:38)
[2021-11-28] MEDS: ATORVASTATIN 20 MG TAB PO SCH (21:38)
[2021-11-28] MEDS: CALCIUM CARBONATE 500 MG CHEWABLE PO SCH (21:38)
[2021-11-28] MEDS: FERROUS SULFATE 325 MG TAB PO SCH (21:38)
[2021-11-29] MEDS: methylPREDNISolone SOD SUCCI 40 MG/ML 1 ML VIAL IV SCH ×4 (00:27→23:33)
[2021-11-29] MEDS: AZITHROMYCIN 500 MG in SODIUM CHLORIDE 0.9% 250 ML IVPB SCH (05:29)
[2021-11-29] MEDS: LEVOTHYROXINE 50 MCG TAB PO SCH (05:29)
[2021-11-29] MEDS: guaiFENesin 600 MG TABLET.ER PO SCH ×2 (07:32→21:39)
[2021-11-29] MEDS: ENOXAPARIN 40 MG/0.4 ML SYRINGE SQ SCH (07:32)
[2021-11-29] MEDS: LORATADINE 10 MG TAB PO SCH (07:32)
[2021-11-29] MEDS: OSELTAMIVIR 75 MG CAP PO SCH ×2 (07:33→21:39)
[2021-11-29] MEDS: PANTOPRAZOLE 40 MG TABLET PO SCH (07:33)
[2021-11-29] MEDS: ALBUTEROL NEBULIZED 2.5 MG/3 ML INHALATION SCH ×3 (08:43→21:39)
[2021-11-29] MEDS: SYMBICORT 160-4.5 MCG INHALER INHALATION SCH ×2 (08:44→21:39)
--- NOTE | 2021-11-29 12:59 | P.DS ---
Providers Date of admission: 11/26/21 02:20 Expected date of discharge: 11/30/21 Attending physician: Diane Milton Consults: 11/26/21 02:24 Consult Physician Routine Consulting Provider: Rahul Palencia Consult Reason/Comments: known Do you want consulting provider notified?: Yes Primary care physician: Diane Milton [facility] Course: HISTORY OF PRESENT ILLNESS This is a 76-year-old male patient of Dr. Milton and Dr. Palencia with past medical history of moderate persistent asthma, hypertension, hyperlipidemia, hypothyroidism, remote history of tobacco use and dependence, daily alcohol use. Patient gives history of developing increasing shortness of breath, cough, chills. Patient presented to [facility] emergency center. He was febr ile with a temperature of 101.8, heart rate 102, blood pressure 163/96, pulse ox 94% on room air. CBC was unremarkable. INR 1.0, d-dimer 0.42. Sodium 134 otherwise electrolytes and renal function normal. Troponin negative. Liver function tests negative. Influenza A detected. Influenza B not detected, RSV not detected, Covid 19 not detected. Chest x-ray revealed no active cardiopulmonary disease. Mild fibrotic changes at the lung bases. There is clearing of the infiltrate right lower lobe to a large extent compared to old exam. Patient was admitted to the [facility] floor and consult with pulmonary medicine, IV Solu-Medrol, DuoNeb treatments, azithromycin, ceftriaxone and Tamiflu. 11/27: Patient states he is feeling much better from yesterday. He had a coughing episode last evening about quite a bit of sputum, having less sputum today. He states his appetite is improved. He has been afebrile for greater than 24 hours. Heart rate in the 70s, blood pressure 148/78, pulse ox 98% on 2 L nasal cannula. Patient is concerned that he was on Atrovent which he has an ALLERGY to. Patient did receive 3 doses and did not have any adverse reaction. We will change this over to just albuterol per his request. He is continued on IV Solu-Medrol at 40 mg every 8 hours, Tamiflu, Symbicort and albuterol nebulizer. Anticipate possible discharge in the next 24-48 hours. Patient is followed closely by pulmonary medicine. 11/28: Patient remains afebrile, heart rate 74, blood pressure 148/84, pulse ox 97% on 2 L nasal cannula. Blood cultures are showing no growth at 24 hours. Repeat chest x-ray reveals COPD changes with bilateral basal pulmonary atelectasis. Repeat blood work ordered for tomorrow. Pulmonary medicine is following closely, patient continues on IV Solu-Medrol, Tamiflu, albuterol nebulizer, Symbicort and antibiotics. 11/30: Patient has been seen by pulmonary medicine this morning and again cleared for discharge. A second oxygen home assessment completed and patient and patient was 94% on room air at rest dropped down to 87% with ambulation. Home oxygen therapy will be arranged by case assembler. Patient has been afebrile, heart rate in the 80s and 90s, blood pressure 179/94. Blood pressure medication changed to losartan/hydrochlorothiazide. Patient will be discharged home today in stable condition. DISCHARGE DIAGNOSES 1. Dyspnea secondary to acute influenza A and exacerbation of moderate intermittent asthma and COPD exacerbation. 2. Hypertension. 3. Hyperlipidemia. 4. Hypothyroidism. 5. Remote history of tobacco use and dependence. 6. Daily alcohol abuse. 7. Chronic hypoxic respiratory failure requiring home oxygen therapy. Patient requires oxygen in order to perform activities of daily living secondary to COPD and moderate intermittent asthma, influenza A. DISCHARGE PLAN Home Greater than 35 minutes was utilized and coordinating patient's discharge. Impression and plan of care have been directed as dictated by the signing physician. Bethany Bradshaw nurse practitioner acting as scribe for signing physician. Patient Condition at Discharge: Good Plan - Discharge Summary Discharge Rx Participant: Yes New Discharge Prescriptions: New Pantoprazole [Protonix] 40 mg PO AC-BRKFST #10 tab Albuterol Nebulized [Ventolin Nebulized] 2.5 mg INHALATION RT-TID ml Fluticasone Nasal [place] [Flonase Nasal [place]] 2 spray EA NOSTRIL DAILY PRN #0 gm PRN Reason: Allergy Symptoms guaiFENesin [Mucinex] 1,200 mg PO Q12HR tablet predniSONE 0 mg PO DIRECTED #30 tab Losartan/Hydrochlorothiazide [Losartan-Hctz 100-25 mg Tab] 1 tab PO DAILY #30 tab Continue Montelukast [Singulair] 10 mg PO HS Levothyroxine Sodium [Synthroid] 50 mcg PO AC-BRKFST Atorvastatin [Lipitor] 20 mg PO HS Fluticasone/Salmeterol [Advair Hfa 230-21 Mcg Inhaler] 2 puff INHALATION RT- BID Loratadine 10 mg PO DAILY Ubidecarenone [Co Q-10] 100 mg PO HS Calcium Carbonate [Calcium] 1,200 mg PO HS Ascorbic Acid [Vitamin C] 1,000 mg PO HS Msm 1000mg 1,000 mg PO HS Magnesium Oxide [Jean] 500 mg PO HS Glucosamine Sulfate 1,000 mg PO HS Ferrous Sulfate [Iron (65 MG Elemental)] 325 mg PO HS Lutein 20 mg PO HS Cyanocobalamin [Vitamin B-12] 500 mcg PO HS Vitamin E 200 unit PO HS Vitamin D3 400iu/Vitamin A 1500mcg 1 cap PO HS Turmeric 800mg 800 mg PO HS Cholecalciferol (Vitamin D3) [Vitamin D3 (125 MCG = 5,000 IU)] 125 mcg PO HS Vitamin B Complex 1 cap PO HS Echinacea 400 mg PO HS Garlic 1,000 mg PO HS [place]-3 Fatty Acids/Fish Oil [Fish Oil 1,000 mg Softgel] 1 cap PO HS Zinc 50 mg PO HS Potassium Gluconate [Potassium Gluconate ER] 99 mg PO HS Aspirin EC [Ecotrin Low Dose] 81 mg PO HS Discontinued Losartan Potassium 100 mg PO HS Discharge Medication List Atorvastatin [Lipitor] 20 mg PO HS 10/21/19 [History] Levothyroxine Sodium [Synthroid] 50 mcg PO AC-BRKFST 10/21/19 [History] Montelukast [Singulair] 10 mg PO HS 10/21/19 [History] Fluticasone/Salmeterol [Advair Hfa 230-21 Mcg Inhaler] 2 puff INHALATION RT-BID 11/09/20 [History] Loratadine 10 mg PO DAILY 11/09/20 [History] Ascorbic Acid [Vitamin C] 1,000 mg PO HS 11/26/21 [History] Aspirin EC [Ecotrin Low Dose] 81 mg PO HS 11/26/21 [History] Calcium Carbonate [Calcium] 1,200 mg PO HS 11/26/21 [History] Cholecalciferol (Vitamin D3) [Vitamin D3 (125 MCG = 5,000 IU)] 125 mcg PO HS 11/26/21 [History] Cyanocobalamin [Vitamin B-12] 500 mcg PO HS 11/26/21 [History] Echinacea 400 mg PO HS 11/26/21 [History] Ferrous Sulfate [Iron (65 MG Elemental)] 325 mg PO HS 11/26/21 [History] Garlic 1,000 mg PO HS 11/26/21 [History] Glucosamine Sulfate 1,000 mg PO HS 11/26/21 [History] Lutein 20 mg PO HS 11/26/21 [History] Magnesium Oxide [Jean] 500 mg PO HS 11/26/21 [History] Msm 1000mg 1,000 mg PO HS 11/26/21 [History] [place]-3 Fatty Acids/Fish Oil [Fish Oil 1,000 mg Softgel] 1 cap PO HS 11/26/21 [History] Potassium Gluconate [Potassium Gluconate ER] 99 mg PO HS 11/26/21 [History] Turmeric 800mg 800 mg PO HS 11/26/21 [History] Ubidecarenone [Co Q-10] 100 mg PO HS 11/26/21 [History] Vitamin B Complex 1 cap PO HS 11/26/21 [History] Vitamin D3 400iu/Vitamin A 1500mcg 1 cap PO HS 11/26/21 [History] Vitamin E 200 unit PO HS 11/26/21 [History] Zinc 50 mg PO HS 11/26/21 [History] Albuterol Nebulized [Ventolin Nebulized] 2.5 mg INHALATION RT-TID ml 11/29/21 [Rx] Fluticasone Nasal [place] [Flonase Nasal [place]] 2 spray EA NOSTRIL DAILY PRN #0 gm 11/29/21 [Rx] Pantoprazole [Protonix] 40 mg PO AC-BRKFST #10 tab 11/29/21 [Rx] guaiFENesin [Mucinex] 1,200 mg PO Q12HR tablet 11/29/21 [Rx] predniSONE 0 mg PO DIRECTED #30 tab 11/29/21 [Rx] Losartan/Hydrochlorothiazide [Losartan-Hctz 100-25 mg Tab] 1 tab PO DAILY #30 tab 11/30/21 [Rx] Follow up Appointment(s)/Referral(s): Diane Milton MD [Primary Care Provider] - 12/07/21 11:00 am [facility],Equipment [NON-STAFF] - (*Please call [facility] once home to arrange delivery of the oxygen concentrator. ) Rahul Palencia DO [Doctor of Osteopathic Medicine] - 12/13/21 1:15 pm Patient Instructions/Handouts: COPD (Chronic Obstructive Pulmonary Disease) (DC) Discharge Disposition: HOME SELF-CARE
--- NOTE | 2021-11-29 14:14 | P.PN ---
Subjective Progress Note Date: 11/29/21 This is a very pleasant 76-year-old male patient with a known history of hyperlipidemia, hypertension, hypothyroidism, former smoker, daily alcohol use, moderate persistent chronic bronchial asthma and follows with Dr. Palencia in our office for the same. He is maintained on Advair, Singulair, albuterol. Y esterday he developed increasing shortness of breath cough congestion and chills and presented here to the emergency room last evening. Chest x-ray reveals no acute cardiopulmonary process. Some mild fibrotic changes at the lung bases. White count 7.2. Hemoglobin 12.6. Sodium 138. Potassium 4.0. Bicarb 21. Creatinine 0.97. Glucose 184. He did have a T-max of 101.8. He did test positive for influenza A. Coronavirus, RSV and influenza B not detected. He was initiated on ceftriaxone, azithromycin and Tamiflu. He is seen today in consultation on the regular medical floor. He is currently sitting up at the bedside. Awake and alert in no acute distress. Maintaining good O2 saturations in the mid to upper 90s on 2 L/m per nasal cannula. Currently afebrile. He does have a loose nonproductive cough. The patient is seen today 11/27/2021 in follow-up in the regular medical floor. He is currently sitting up in the bedside. Awake and alert in no acute distress. Still with a loose nonproductive cough. Still dyspneic with conversation. Though improved today compared to yesterday. He is on 2 L nasal cannula maintaining O2 saturations in the 90s. He remains on antibiotics in the form of cefepime and azithromycin. He remains on Tamiflu. He is continued on bronchodilators and IV Solu-Medrol. Lovenox for DVT prophylaxis. Blood cultures revealed no growth. The patient is seen today 11/28/2021 in follow-up on the regular medical floor. He is currently sitting up in bed. Awake and alert in no acute distress. Breathing easier today compared to yesterday. He is maintaining O2 saturations in the 90s on 2 L/m per nasal cannula. Normal saline at KVO. He is continued on Symbicort, DuoNeb inhalations, IV Solu-Medrol. Continued on Tamiflu. Lovenox for DVT prophylaxis. Follow-up chest x-ray reveals evidence of COPD. Minimal right basilar linear atelectasis. The patient is seen today 11/29/2021 in follow-up on the regular medical floor. He is awake and alert in no acute distress. Currently sitting up in bed. She denies any worsening shortness of breath, cough or congestion. Continue good O2 saturations in the mid 90s on 2 L/m per nasal cannula. Blood cultures revealed no growth. He is continued on IV Solu-Medrol, Symbicort, antibiotics in the fo rm of ceftriaxone. Completing his course of Tamiflu. Objective - Vital Signs Vital signs: Vital Signs Temp 97.8 F 11/29/21 08:00 Pulse 87 11/29/21 13:14 Resp 16 11/29/21 08:54 BP 159/89 11/29/21 08:00 Pulse Ox 96 11/29/21 08:44 Intake & Output 11/28/21 11/29/21 11/29/21 18:59 06:59 18:59 Intake Total 300 Balance 300 Intake: Intake, IV Titration 300 Amount Azithromycin 500 mg In 250 Sodium Chloride 0.9% 250 ml @ 250 mls/hr IVPB Q24H MINAL Rx#:[id number] cefTRIAXone 1 gm In 50 Sodium Chloride 0.9% 50 ml @ 100 mls/hr IVPB Q12H MINAL Rx#:[id number] Other: Voiding Method Toilet # Voids 2 1 1 - Exam GENERAL EXAM: Alert, very pleasant 76-year-old gentleman, on 2 L nasal cannula, comfortable in no apparent distress. HEAD: Normocephalic. EYES: Normal reaction of pupils, equal size. NOSE: Clear with pink turbinates. THROAT: No erythema or exudates. NECK: No masses, no JVD. CHEST: No chest wall deformity. LUNGS: Equal air entry with bilateral scattered rhonchi. CVS: S1 and S2 normal with no audible murmur, regular rhythm. ABDOMEN: No hepatosplenomegaly, normal bowel sounds, no guarding or rigidity. SPINE: No scoliosis or deformity SKIN: No rashes CENTRAL NERVOUS SYSTEM: No focal deficits, tone is normal in all 4 extremities. EXTREMITIES: There is no peripheral edema. No clubbing, no cyanosis. Peripheral pulses are intact. - Labs CBC & Chem 7: 11/26/21 06:01 11/26/21 06:01 Labs: Microbiology - Last 24 Hours (Table) 11/26/21 03:02 Blood Culture - Preliminary Blood No Growth after 72 hours 11/26/21 02:55 Blood Culture - Preliminary Blood No Growth after 72 hours Assessment and Plan Assessment: 1 Acute hypoxemic respiratory failure secondary to acute influenza A infection, complicated by tracheobronchitis 2 Acute exacerbation of of moderate persistent chronic bronchial asthma, secondary to above 3 Hypertension 4 Hyperlipidemia. 5 Hypothyroidism Plan: The patient was seen and evaluated Stable and on 2 L nasal cannula Evaluate for possible home oxygen Probable home today Complete his course of Tamiflu Continue his home pulmonary medications Follow up with Dr. Palencia in the office in 1-2 weeks' I have personally seen and examined the patient, performed the documentation and the assessment and plan as written. Number of minutes spent on the visit: 10.
--- NOTE | 2021-11-29 14:28 | P.PN ---
Subjective Progress Note Date: 11/29/21 HISTORY OF PRESENT ILLNESS This is a 76-year-old male patient of Dr. Milton and Dr. Palencia with past medical history of moderate persistent asthma, hypertension, hyperlipidemia, hypot hyroidism, remote history of tobacco use and dependence, daily alcohol use. Patient gives history of developing increasing shortness of breath, cough, chills. Patient presented to [facility] emergency center. He was febrile with a temperature of 101.8, heart rate 102, blood pressure 163/96, pulse ox 94% on room air. CBC was unremarkable. INR 1.0, d-dimer 0.42. Sodium 134 otherwise electrolytes and renal function normal. Troponin negative. Liver function tests negative. Influenza A detected. Influenza B not detected, RSV not detected, Covid 19 not detected. Chest x-ray revealed no active cardiopulmonary disease. Mild fibrotic changes at the lung bases. There is clearing of the infiltrate right lower lobe to a large extent compared to old exam. Patient was admitted to the Med[facility] floor and consult with pulmonary medicine, IV Solu-Medrol, DuoNeb treatments, azithromycin, ceftriaxone and Tamiflu. 11/27: Patient states he is feeling much better from yesterday. He had a coughing episode last evening about quite a bit of sputum, having less sputum today. He states his appetite is improved. He has been afebrile for greater than 24 hours. Heart rate in the 70s, blood pressure 148/78, pulse ox 98% on 2 L nasal cannula. Patient is concerned that he was on Atrovent which he has an ALLERGY to. Patient did receive 3 doses and did not have any adverse reaction. We will change this over to just albuterol per his request. He is continued on IV Solu-Medrol at 40 mg every 8 hours, Tamiflu, Symbicort and albuterol nebulizer. Anticipate possible discharge in the next 24-48 hours. Patient is followed closely by pulmonary medicine. 11/28: Patient remains afebrile, heart rate 74, blood pressure 148/84, pulse ox 97% on 2 L nasal cannula. Blood cultures are showing no growth at 24 hours. Repeat chest x-ray reveals COPD changes with bilateral basal pulmonary atelectasis. Repeat blood work ordered for tomorrow. Pulmonary medicine is following closely, patient continues on IV Solu-Medrol, Tamiflu, albuterol nebulizer, Symbicort and antibiotics. 11/29: Patient is feeling much better, lungs sounds are improved. Patient was ambulated to assess for home oxygen need and he did drop down to 88% with ambulation, quickly returned to 91-92% with rest. Patient will be monitored overnight and plan for discharge home tomorrow. Patient may not require oxygen therapy by that time. He has been afebrile, heart rate in the 80s and 90s, blood pressure 159/89. Patient has been seen by pulmonary medicine and cleared for discharge. REVIEW OF SYSTEMS Constitutional: Reports fever, no chills, no night sweats. No weight change. No weakness, fatigue or lethargy. No daytime sleepiness. EENT: No headache. No blurred vision or double vision, no loss of vision. No loss of Hearing, no ringing in the ears, no dizziness. No nasal drainage or congestion. No epistaxis. No sore throat. Lungs: Reports shortness of breath-improving, reports cough-less frequent, reports acute on chronic sputum production. Reports chronic wheezing. Reports dyspnea with exertion. Cardiovascular: No chest pain, no lower extremity edema. No palpitations. No paroxysmal nocturnal dyspnea. No orthopnea. No lightheadedness or dizziness. No syncopal episodes. Abdominal: No abdominal pain. No nausea, vomiting. No diarrhea. No constipation. No bloody or tarry stools.. No loss of appetite. Genitourinary: No dysuria, increased frequency, urgency. No urinary retention. Musculoskeletal: No myalgias. No muscle weakness, no gait dysfunction, no frequent falls. No back pain. No neck pain. Integumentary: No wounds, no lesions. No rash or pruritus. No unusual bruising. No change in hair or nails. Neurologic: No aphasia. No facial droop. No change in mentation. No head injury. No headache. No paralysis. No paresthesia. Psychiatric: No depression. No anxiety. Endocrine: No abnormal blood sugars. No weight change. PHYSICAL EXAMINATION Gen: This is a 76-year-old male. He is comfortable and in no acute distress. HEENT: Head is atraumatic, normocephalic. Pupils equal, round. Sclerae is anicteric. NECK: Supple. No JVD. No lymphadenopathy. No thyromegaly. LUNGS: Rhonchi more so on the right. No intercostal retractions. No accessory muscle usage. HEART: Regular rate and rhythm. No murmur. ABDOMEN: Soft. Bowel sounds are present. No masses. No tenderness. EXTREMITIES: No pedal edema. No calf tenderness. Dorsalis pedis palpable bilaterally. NEUROLOGICAL: Patient is awake, alert and oriented x3. Cranial nerves 2 through 12 are grossly intact. ASSESSMENT AND PLAN 1. Dyspnea secondary to acute influenza a and exacerbation of moderate intermittent asthma and COPD exacerbation. Consult with pulmonary medicine appreciated. Continue albuterol 4 times daily, Symbicort 2 puffs twice daily, Rocephin and a azithromycin daily, Solu-Medrol decreased to 40 mg every 8 hours, Singulair 10 mg at bedtime, continue Tamiflu 75 mg oral twice daily to complete a five-day course. Reassess home oxygen need tomorrow 2. Hypertension. Continue losartan 100 mg at bedtime. 3. Hyperlipidemia. Continue atorvastatin 20 mg at bedtime. 4. Hypothyroidism. Continue levothyroxine 50 g daily. 5. Remote history of tobacco use and dependence. 6. Daily alcohol abuse. Monitor for DTs. 7. GI prophylaxis. Protonix daily. 8. DVT prophylaxis. Lovenox subcu. DISCHARGE PLAN Home on Friday Impression and plan of care have been directed as dictated by the signing physician. Bethany Bradshaw nurse practitioner acting as scribe for signing physician. Objective - Vital Signs Vital signs: Vital Signs Temp 97.8 F 11/29/21 08:00 Pulse 87 11/29/21 13:14 Resp 16 11/29/21 08:54 BP 159/89 11/29/21 08:00 Pulse Ox 96 11/29/21 08:44 Intake & Output 11/28/21 11/29/21 11/29/21 18:59 06:59 18:59 Intake Total 300 Balance 300 Intake: Intake, IV Titration 300 Amount Azithromycin 500 mg In 250 Sodium Chloride 0.9% 250 ml @ 250 mls/hr IVPB Q24H MINAL Rx#:[id number] cefTRIAXone 1 gm In 50 Sodium Chloride 0.9% 50 ml @ 100 mls/hr IVPB Q12H MINAL Rx#:[id number] Other: Voiding Method Toilet # Voids 2 1 1 - Labs CBC & Chem 7: 11/26/21 06:01 11/26/21 06:01 Labs: Microbiology - Last 24 Hours (Table) 11/26/21 03:02 Blood Culture - Preliminary Blood No Growth after 72 hours 11/26/21 02:55 Blood Culture - Preliminary Blood No Growth after 72 hours
[2021-11-29] MEDS: CYANOCOBALAMIN 500 MCG TAB PO SCH (21:38)
[2021-11-29] MEDS: CALCIUM CARBONATE 500 MG CHEWABLE PO SCH (21:38)
[2021-11-29] MEDS: LOSARTAN 50 MG TAB PO SCH (21:38)
[2021-11-29] MEDS: ATORVASTATIN 20 MG TAB PO SCH (21:39)
[2021-11-29] MEDS: FERROUS SULFATE 325 MG TAB PO SCH (21:39)
[2021-11-29] MEDS: ASPIRIN 81 MG PO SCH (21:39)
[2021-11-29] MEDS: CHOLECALCIFEROL 125 MCG (5000 IU) TABLET PO SCH (21:39)
[2021-11-29] MEDS: MONTELUKAST 10 MG TAB PO SCH (21:39)
[2021-11-29] MEDS: MAGNESIUM OXIDE 400 MG TAB PO SCH (21:39)
[2021-11-29] MEDS: ASCORBIC ACID 500 MG TAB PO SCH (21:39)
[2021-11-29] MEDS: ZINC SULFATE 220 MG CAP PO SCH (21:39)
[2021-11-30] MEDS: LEVOTHYROXINE 50 MCG TAB PO SCH (05:45)
[2021-11-30] MEDS: BENZOCAINE/MENTHOL LOZENG 1 EACH LOZENGE MUCOUS MEM PRN (05:48)
[2021-11-30] MEDS: methylPREDNISolone SOD SUCCI 40 MG/ML 1 ML VIAL IV SCH (08:24)
[2021-11-30] MEDS: OSELTAMIVIR 75 MG CAP PO SCH ×2 (08:24→17:23)
[2021-11-30] MEDS: guaiFENesin 600 MG TABLET.ER PO SCH (08:24)
[2021-11-30] MEDS: LORATADINE 10 MG TAB PO SCH (08:24)
[2021-11-30] MEDS: PANTOPRAZOLE 40 MG TABLET PO SCH (08:24)
[2021-11-30] MEDS: ENOXAPARIN 40 MG/0.4 ML SYRINGE SQ SCH (08:24)
[2021-11-30 08:31] VITALS: RESP 18
[2021-11-30] MEDS: ALBUTEROL NEBULIZED 2.5 MG/3 ML INHALATION SCH ×2 (08:54→12:59)
[2021-11-30] MEDS: SYMBICORT 160-4.5 MCG INHALER INHALATION SCH (08:55)
[2021-11-30 15:23] VITALS: BP 167/86; PULSE 93; TEMP 98.3
== END 2021-11-30 18:59 | disposition home or self-care (01) | DRG 193 ==
LOC: EC 23:15 → 4SSUR 11-26 02:20
PROVIDERS: ADMIT Internal Medicine; ATTEND Internal Medicine
DX: J10.1 Influenza due to other identified influenza virus with other respiratory manifestations (principal); J96.21 Acute and chronic respiratory failure with hypoxia; J44.0 Chronic obstructive pulmonary disease with (acute) lower respiratory infection; J44.1 Chronic obstructive pulmonary disease with (acute) exacerbation; J45.41 Moderate persistent asthma with (acute) exacerbation; J98.11 Atelectasis; Z87.891 Personal history of nicotine dependence; Z20.822 Contact with and (suspected) exposure to COVID-19; E03.9 Hypothyroidism, unspecified; E78.5 Hyperlipidemia, unspecified; F10.10 Alcohol abuse, uncomplicated; I10 Essential (primary) hypertension; Z79.890 Hormone replacement therapy; Z79.899 Other long term (current) drug therapy; Z80.7 Family history of other malignant neoplasms of lymphoid, hematopoietic and related tissues; Z82.3 Family history of stroke; Z87.01 Personal history of pneumonia (recurrent); E66.9 Obesity, unspecified; Z68.30 Body mass index [BMI] 30.0-30.9, adult; Z98.890 Other specified postprocedural states; Z88.8 Allergy status to other drugs, medicaments and biological substances; Z79.82 Long term (current) use of aspirin
CPT/HCPCS: 36415; 71045; 71046; 80053; 83735; 83880; 84484; 85025; 85379; 85610; 85730; 87040; 87636; 93005; 94640; 94760; 96361; 96365; 96375; 99285

== ENCOUNTER 2023-02-23 02:47 | Emergency (ER) | payer MEDICARE, BC ==
[2023-02-23 02:53] VITALS: BP 136/88; PULSE 95; RESP 18; TEMP 98.2
--- NOTE | 2023-02-23 03:24 | ED ---
General Adult HPI - General Chief complaint: Wound/Laceration Stated complaint: RIGHT HAND INJURY Time Seen by Provider: 02/23/23 03:00 Source: patient Mode of arrival: ambulatory Limitations: no limitations - History of Present Illness Initial comments: This is an 78-year-old male who presents emergency department for a hand laceration. The patient stated that he decided to change of his storm windows when the window fell, causing a laceration to the dorsal aspect of his right hand. The patient did state that he cleaned the wound thoroughly with water at home and continue to place pressure however had continued oozing of blood therefore wanted to be evaluated. The patient stated that his episodes "up-to-date nausea never have to get another when the rest of my life." Denied any other acute pain or complaints at this time and had full range of motion of his right hand and all digits. - Related Data Home Medications Medication Instructions Recorded Confirmed Atorvastatin [Lipitor] 20 mg PO HS 10/21/19 11/26/21 Levothyroxine Sodium [Synthroid] 50 mcg PO AC-BRKFST 10/21/19 11/26/21 Montelukast [Singulair] 10 mg PO HS 10/21/19 11/26/21 Fluticasone Propion/Salmeterol 2 puff INHALATION RT-BID 11/09/20 11/26/21 [Advair Hfa 230-21 Mcg Inhaler] Loratadine 10 mg PO DAILY 11/09/20 11/26/21 Ascorbic Acid [Vitamin C] 1,000 mg PO HS 11/26/21 11/26/21 Aspirin EC [Ecotrin Low Dose] 81 mg PO HS 11/26/21 11/26/21 Calcium Carbonate [Calcium] 1,200 mg PO HS 11/26/21 11/26/21 Cholecalciferol (Vitamin D3) 125 mcg PO HS 11/26/21 11/26/21 [Vitamin D3 (125 MCG = 5,000 IU)] Cyanocobalamin [Vitamin B-12] 500 mcg PO HS 11/26/21 11/26/21 Echinacea 400 mg PO HS 11/26/21 11/26/21 Ferrous Sulfate [Iron (65 MG 325 mg PO HS 11/26/21 11/26/21 Elemental)] Garlic 1,000 mg PO HS 11/26/21 11/26/21 Glucosamine Sulfate 1,000 mg PO HS 11/26/21 11/26/21 Lutein 20 mg PO HS 11/26/21 11/26/21 Magnesium Oxide [Jean] 500 mg PO HS 11/26/21 11/26/21 Msm 1000mg 1,000 mg PO HS 11/26/21 11/26/21 [place]-3 Fatty Acids/Fish Oil [Fish 1 cap PO HS 11/26/21 11/26/21 Oil 1,000 mg Softgel] Potassium Gluconate [Potassium 99 mg PO HS 11/26/21 11/26/21 Gluconate ER] Turmeric 800mg 800 mg PO HS 11/26/21 11/26/21 Ubidecarenone [Co Q-10] 100 mg PO HS 11/26/21 11/26/21 Vitamin B Complex 1 cap PO HS 11/26/21 11/26/21 Vitamin D3 400iu/Vitamin A 1500mcg 1 cap PO HS 11/26/21 11/26/21 Vitamin E (Dl,Tocopheryl Acet) 200 unit PO HS 11/26/21 11/26/21 [Vitamin E] Zinc 50 mg PO HS 11/26/21 11/26/21 Previous Rx's Medication Instructions Recorded Albuterol Nebulized [Ventolin 2.5 mg INHALATION RT-TID ml 11/29/21 Nebulized] Fluticasone Nasal [place] [Flonase 2 spray EA NOSTRIL DAILY PRN #0 gm 11/29/21 Nasal [place]] Pantoprazole [Protonix] 40 mg PO AC-BRKFST #10 tab 11/29/21 guaiFENesin [Mucinex] 1,200 mg PO Q12HR tablet 11/29/21 predniSONE 0 mg PO DIRECTED #30 tab 11/29/21 Losartan/Hydrochlorothiazide 1 tab PO DAILY #30 tab 11/30/21 [Losartan-Hctz 100-25 mg Tab] Allergies Allergy/AdvReac Type Severity Reaction Status Date / Time ipratropium Allergy Unknown Verified 11/26/21 07:21 Review of Systems ROS Statement: Those systems with pertinent positive or pertinent negative responses have been documented in the HPI. ROS Other: All systems not noted in ROS Statement are negative. Past Medical History Past Medical History: Asthma, COPD, Hyperlipidemia, Hypertension, Thyroid Disorder Additional Past Medical History / Comment(s): Pt says he doese not think he has COPD but has been diagnosed with it. History of Any Multi-Drug Resistant Organisms: None Reported Past Surgical History: Appendectomy, Back Surgery Past Anesthesia/Blood Transfusion Reactions: No Reported Reaction Past Psychological History: No Psychological Hx Reported Smoking Status: Former smoker Past Alcohol Use History: Daily Past Drug Use History: None Reported General Exam Limitations: no limitations General appearance: alert, in no apparent distress Head exam: Present: atraumatic, normocephalic, normal inspection Eye exam: Present: normal appearance, PERRL Pupils: Present: normal accommodation ENT exam: Present: normal exam, normal oropharynx, mucous membranes moist Neck exam: Present: normal inspection, full ROM Respiratory exam: Present: normal lung sounds bilaterally Cardiovascular Exam: Present: regular rate, normal rhythm, normal heart sounds GI/Abdominal exam: Present: soft, normal bowel sounds Extremities exam: Present: normal inspection, full ROM Back exam: Present: normal inspection, full ROM Neurological exam: Present: alert, oriented X3, CN II-XII intact Psychiatric exam: Present: normal affect, normal mood Skin exam: Present: warm, dry, other (Skin avulsion noted to the dorsal right hand) Course Vital Signs 02/23/23 02:49 Temperature 98.2 F Pulse Rate 95 Respiratory 18 Rate Blood Pressure 136/88 O2 Sat by Pulse 97 Oximetry Medical Decision Making - Medical Decision Making Was pt. sent in by a medical professional or institution (VIGN[facility] Mcgovern, CONTRACT MODELER, urgent care, hospital, or fci...) When possible be specific @ -No Did you speak to anyone other than the patient for history (EMS, parent, family, police, friend...)? What history was obtained from this source @ -No Did you review nursing and triage notes (agree or disagree)? Why? @ -I reviewed and agree with nursing and triage notes Were old charts reviewed (outside hosp., previous admission, EMS record, old EKG, old radiological studies, urgent care reports/EKG's, fci records)? Report findings @ -No old charts were reviewed Differential Diagnosis (chest pain, altered mental status, abdominal pain women, abdominal pain men, vaginal bleeding, weakness, fever, dyspnea, syncope, headache, dizziness, GI bleed, back pain, seizure, CVA, palpatations, mental health)? @ -Hand laceration, avulsion, abrasion EKG interpreted by me (3pts min.). @ -None X-rays interpreted by me (1pt min.). @ -None done CT interpreted by me (1pt min.). @ -None done U/S interpreted by me (1pt. min.). @ -None done What testing was considered but not performed or refused? (CT, X-rays, U/S, labs)? Why? @ -None What meds were considered but not given or refused? Why? @ -None Did you discuss the management of the patient with other professionals (professionals i.e. DrCelestino, PA, CONTRACT MODELER, lab, RT, psych nurse, social sciences professor, hook loader, teacher, svp chief marketing officer, telephonic nurse case manager)? Give summary @ -No Was smoking cessation discussed for >3mins.? @ -No Was critical care preformed (if so, how long)? @ -No Were there social determinants of health that impacted care today? How? (Homelessness, low income, unemployed, alcoholism, drug addiction, transportation, low edu. Level, literacy, decrease access to med. care, snf, rehab)? @ -No Was there de-escalation of care discussed even if they declined (Discuss DNR or withdrawal of care, Hospice)? DNR status @ -No What co-morbidities impacted this encounter? (DM, HTN, Smoking, COPD, CAD, Cancer, CVA, ARF, Chemo, Hep., AIDS, mental health diagnosis, sleep apnea, morbid obesity)? @ -None Was patient admitted / discharged? Hospital course, mention meds given and route, prescriptions, significant lab abnormalities, going to OR and other pertinent info. @ -The patient was seen and evaluated emergency department. Physical exam, the patient was resting in bed without any acute distress. Vital signs admission were stable. Due to the nature the patient's complaints, no imaging was obtained at this time. The patient suffered a skin avulsion and could not tolerate laceration repair via sutures nor would Dermabond be an appropriate choice. The patient said had cessation of bleeding with pressure and his wound was thoroughly cleaned with a pressure dressing placed. The patient stated that he preferred this route and would prefer to monitor it at home and did not get any stitches at this time. The patient was deemed stable for discharge and was told to follow-up with his private care physician if needed and to report back to the emergency department if he had continued bleeding. The patient was agreeable to this and all his questions were answered appropriately. The patient was discharged home in stable condition. Undiagnosed new problem with uncertain prognosis? @ -No Drug Therapy requiring intensive monitoring for toxicity (Heparin, Nitro, Insulin, Cardizem)? @ -No Were any procedures done? @ -No Diagnosis/symptom? @ -Right hand skin avulsion Acute, or Chronic, or Acute on Chronic? @ -Acute Uncomplicated (without systemic symptoms) or Complicated (systemic symptoms)? @ -Uncomplicated Side effects of treatment? @ -No Exacerbation, Progression, or Severe Exacerbation? @ -No Poses a threat to life or bodily function? How? (Chest pain, [place], [place], pneumonia, PE, COPD, DKA, ARF, appy, cholecystitis, CVA, Diverticulitis, Homicidal, Suicidal, threat to staff... and all critical care pts) @ -No Disposition Clinical Impression: Skin avulsion Disposition: HOME SELF-CARE Condition: Stable Instructions (If sedation given, give patient instructions): Skin Avulsion (ED) Is patient prescribed a controlled substance at d/c from ED?: No Referrals: Diane Milton MD [Primary Care Provider] - 1-2 days Time of Disposition: 03:20
== END 2023-02-23 03:35 | disposition home or self-care (01) ==
LOC: EC 02:47
DX: S61.411A Laceration without foreign body of right hand, initial encounter (principal); J44.9 Chronic obstructive pulmonary disease, unspecified; E78.5 Hyperlipidemia, unspecified; I10 Essential (primary) hypertension; E07.9 Disorder of thyroid, unspecified; Z79.890 Hormone replacement therapy; Z79.51 Long term (current) use of inhaled steroids; Z79.899 Other long term (current) drug therapy; Z87.891 Personal history of nicotine dependence; Z79.82 Long term (current) use of aspirin; Z88.8 Allergy status to other drugs, medicaments and biological substances; W19.XXXA Unspecified fall, initial encounter
CPT/HCPCS: 99282